=== PATIENT | female | born 1945 | race Caucasian/White ===

== ENCOUNTER 2020-02-17 10:23 | Outpatient (REF) | payer MEDICARE, SELFPAY ==
--- NOTE | 2020-02-17 | US_ITS ---
EXAMINATION: US DIAGNOSTIC ULTRASOUND BREAST, RIGHT CLINICAL INFORMATION: Medial density. COMPARISON: Mammography of same day and ultrasound of 02/22/2019 TECHNIQUE: Ultrasound of the breast is performed with real-time wing scale imaging and color Doppler. FINDINGS: Targeted ultrasound evaluation of the right breast demonstrated at the 3:00 position approximately 8 cm from the nipple, a 4 mm circumscribed hypoechoic lesion without distal sound enhancement and very faint distal sound shadowing. No internal vasculature is appreciated. Ultrasound-guided core biopsy is recommended. Results are discussed with the patient at time of visit. Density at the right is on 02/07/2020. IMPRESSION: Enlarging suspicious right breast lesion for which ultrasound-guided core biopsy is recommended. ASSESSMENT: BI-RADS 4: Suspicious. RECOMMENDATION: Ultrasound-guided core biopsy right breast lesion.
--- NOTE | 2020-02-17 | MM_ITS ---
EXAMINATION: MM DIAGNOSTIC DIGITAL BREAST TOMOSYNTHESIS, BILATERAL RIGHT BREAST ULTRASOUND CLINICAL INFORMATION: Bilateral mammography. Late for six-month followup of the right breast. The lifetime risk of breast cancer based on the Tyrer-Cuzick Model is 1.7%. COMPARISON: Mammography: 02/22/2019 and studies dating back to 12/11/2009. TECHNIQUE: Digital breast tomosynthesis is performed in both the craniocaudal and mediolateral oblique views along with computer-aided detection (CAD). Synthesized 2D images are generated from the tomosynthesis. Targeted right breast ultrasound. FINDINGS: There are scattered areas of fibroglandular density (ACR BI-RADS breast composition Category b). There is a stable parenchymal pattern of the left breast with no new abnormal dominant mass or suspicious grouping of microcalcifications. About the deep medial aspect of the right breast there is a circumscribed density approximately 9 cm from the nipple measuring 6 mm in diameter which has increased in size since the previous study where it measured 4 mm in diameter and was less dense. Targeted ultrasound evaluation of the right breast demonstrated at the 3 o'clock position approximately 8 cm from the nipple a 4 mm circumscribed hypoechoic lesion without distal sound enhancement and very faint distal sound shadowing. No internal vasculature is appreciated. Ultrasound-guided core biopsy is recommended. Results are discussed with the patient at time of visit. Larisa at the referring provider's office was notified of the above findings on 02/17/2020. IMPRESSION: Enlarging suspicious right breast lesion for which ultrasound-guided core biopsy is recommended. ASSESSMENT: BI-RADS 4: Suspicious RECOMMENDATION: Ultrasound-guided core biopsy right breast lesion. This patient's information was entered into a reminder system with a target due date for their next mammogram.
== END 2020-02-17 10:24 | disposition home or self-care (01) ==
LOC: HO.MAMMO 10:23
PROVIDERS: PCP Internal Medicine; Visit Provider Internal Medicine
DX: R92.2 Inconclusive mammogram (principal)
CPT/HCPCS: 76642; 77062; 77066

== ENCOUNTER 2020-02-28 09:54 | Outpatient (REF) | payer MEDICARE, SELFPAY ==
--- NOTE | 2020-02-28 | MM_ITS ---
EXAMINATION: ULTRASOUND GUIDED CORE BIOPSY BREAST, RIGHT POST PROCEDURE DIGITAL MAMMOGRAM, RIGHT CLINICAL INFORMATION: Hypoechoic nodule posterior medial right breast for tissue sampling. COMPARISON: Mammography 02/17/2020, 02/11/2019; targeted right breast ultrasound 02/17/2020, 02/22/2019. FINDINGS: Proper informed consent is obtained from the patient after discussion of the procedure, potential risks and complications, and alternatives. Patient was given an opportunity for questions. The patient appeared to understand. The patient consented to the procedure and signed the consent form. GUIDANCE: Ultrasound-guided; aseptic technique. LESION: Hypoechoic nodule 5 mm posterior medial 3:00 right breast and 8 cm from nipple. APPROACH: Oblique lateral medial. ANESTHESIA: 10 mL 1% lidocaine. DERMATOTOMY: Single skin keshia dermatotomy performed. NEEDLE: 16-gauge Bard Marquee biopsy device with co-axial introducer. CORES: 5. CLIP: HydroMARK; shape: butterfly. POST PROCEDURE UNILATERAL DIGITAL MAMMOGRAM: The post biopsy mammogram is performed in separate room using separate digital mammography equipment from the biopsy procedure. CC, LM x2, ML, and MLO views are obtained. There are scattered areas of fibroglandular density (breast composition category: b). The clip marker is in position, residing adjacent to the nodule demonstrated on recent mammography. No gross hematoma. The patient tolerated the procedure well. No immediate complications. Home instructions reviewed with the patient. Final pathology results are pending. MM/MM diagnostic mammo unilat RT IMPRESSION: 1. Status post ultrasound-guided core biopsy right breast. 2. Clip placed: HydroMARK; shape: butterfly. 3. Pathology pending. An addendum report will be issued.
--- NOTE | 2020-02-28 10:05 | US_ITS ---
EXAMINATION: ULTRASOUND GUIDED CORE BIOPSY BREAST, RIGHT POST PROCEDURE DIGITAL MAMMOGRAM, RIGHT CLINICAL INFORMATION: Hypoechoic nodule posterior medial right breast for tissue sampling. COMPARISON: Mammography 02/17/2020, 02/11/2019; targeted right breast ultrasound 02/17/2020, 02/22/2019. FINDINGS: Proper informed consent is obtained from the patient after discussion of the procedure, potential risks and complications, and alternatives. Patient was given an opportunity for questions. The patient appeared to understand. The patient consented to the procedure and signed the consent form. GUIDANCE: Ultrasound-guided; aseptic technique. LESION: Hypoechoic nodule 5 mm posterior medial 3:00 right breast and 8 cm from nipple. APPROACH: Oblique lateral medial. ANESTHESIA: 10 mL 1% lidocaine. DERMATOTOMY: Single skin ekshia dermatotomy performed. NEEDLE: 16-gauge Bard Marquee biopsy device with co-axial introducer. CORES: 5. CLIP: HydroMARK; shape: butterfly. POST PROCEDURE UNILATERAL DIGITAL MAMMOGRAM: The post biopsy mammogram is performed in separate room using separate digital mammography equipment from the biopsy procedure. CC, LM x2, ML, and MLO views are obtained. There are scattered areas of fibroglandular density (breast composition category: b). The clip marker is in position, residing adjacent to the nodule demonstrated on recent mammography. No gross hematoma. The patient tolerated the procedure well. No immediate complications. Home instructions reviewed with the patient. Final pathology results are pending. US/US breast ndl core biopsy RT IMPRESSION: 1. Status post ultrasound-guided core biopsy right breast. 2. Clip placed: HydroMARK; shape: butterfly. 3. Pathology pending. An addendum report will be issued.
== END 2020-02-28 09:55 | disposition home or self-care (01) ==
LOC: HO.MAMMO 09:54
PROVIDERS: Visit Provider Surgery
DX: R92.8 Other abnormal and inconclusive findings on diagnostic imaging of breast (principal); N63.10 Unspecified lump in the right breast, unspecified quadrant; I48.91 Unspecified atrial fibrillation; Z87.891 Personal history of nicotine dependence; Z90.710 Acquired absence of both cervix and uterus; Z88.5 Allergy status to narcotic agent; Z79.02 Long term (current) use of antithrombotics/antiplatelets; Z79.899 Other long term (current) drug therapy
CPT/HCPCS: 19083; 77065; 88305; 88341; 88342; 88360; 88377; 99203; A4648

== ENCOUNTER → 2020-03-06 10:34 | Outpatient (BNVA) | payer MEDICARE, SELFPAY | PROVIDERS: PCP Internal Medicine; Visit Provider Surgery | DX: C50.811 Malignant neoplasm of overlapping sites of right female breast (principal); Z17.0 Estrogen receptor positive status [ER+]; Z98.890 Other specified postprocedural states | CPT/HCPCS: 99212 ==

== ENCOUNTER 2020-03-14 06:48 | Day surgery (SDC) | payer MEDICARE, SELFPAY ==
--- NOTE | 2020-03-12 14:43 | P.CONAN_ITS ---
Documented by User: Nadia Sánchez 03/12/20 14:44 HPI - Anesthesia Eval Consult details Narrative: 74yo F for Breast Biopsy Needle Localization, Sentinal Node Biopsy [facility] Past Medical History Medical History (Updated 03/12/20 @ 14:44 by Nadia Sánchez) Atrial fibrillation Family History Family History (Updated 02/28/20 @ 08:47 by Qi Campos MD) Paternal Aunt Breast cancer, Onset Age: 65 Surgical History Surgical History History of arthroscopy History of cholecystectomy History of hysterectomy Social History Social History (Updated 02/28/20 @ 08:33 by TJ Yeung) Are you a primary healthcare corporate account director to a significant other at home: No Do you presently have visiting nurse or other home services: No Alcohol intake: current Alcohol intake frequency: holidays/special occasions only Smoking Status: Former smoker Smoked in Last 30 Days: No Use of substances other than those prescribed or required for medical reasons: No Advance Directives: No Advance Directives Information Provided: No Advance Directives on File: No Recently lost weight without trying: No Meds Allergies Allergy/AdvReac Type Severity Reaction Status Date / Time codeine [Codeine] AdvReac Mild NAUSEA & Verified 03/06/20 10:40 VOMITING Home Medications Medication Instructions Recorded Confirmed Type metoprolol succinate 50 mg 50 mg PO DAILY 02/28/20 03/06/20 History tablet,extended release 24 hr rivaroxaban 20 mg tablet 20 mg PO BEDTIME 02/28/20 03/06/20 History Exam Exam Date and Time: March 12, 2020 1443 Documented by User: Steve Farley 03/14/20 13:13 HPI - Anesthesia Eval Consult details Narrative: No hx of anesth problems, no fhx. [facility] Past Medical History Medical History (Updated 03/12/20 @ 14:44 by Nadia Sánchez) Atrial fibrillation Family History Family History (Updated 02/28/20 @ 08:47 by Qi Campos MD) Paternal Aunt Breast cancer, Onset Age: 65 Surgical History Surgical History History of arthroscopy History of cholecystectomy History of hysterectomy Social History Social History (Updated 02/28/20 @ 08:33 by TJ Yeung) Are you a primary healthcare corporate account director to a significant other at home: No Do you presently have visiting nurse or other home services: No Alcohol intake: current Alcohol intake frequency: holidays/special occasions only Smoking Status: Former smoker Smoked in Last 30 Days: No Use of substances other than those prescribed or required for medical reasons: No Advance Directives: No Advance Directives Information Provided: No Advance Directives on File: No Recently lost weight without trying: No Meds Allergies Allergy/AdvReac Type Severity Reaction Status Date / Time codeine [Codeine] AdvReac Mild NAUSEA & Verified 03/06/20 10:40 VOMITING Home Medications Medication Instructions Recorded Confirmed Type metoprolol succinate 50 mg 50 mg PO DAILY 02/28/20 03/06/20 History tablet,extended release 24 hr rivaroxaban 20 mg tablet 20 mg PO BEDTIME 02/28/20 03/06/20 History Exam Airway Mallampati Class: II TM Dist: >3cm Neck ROM: Full Other: caps Assessment and Plan Assessment Anesthesia Assessment: Anesthesia Plan Discussed and Chart Reviewed Final Anesthetic Review NPO: Yes ASA Class: II Final Preanesthetic Review: No Changes in Pt Med Stat, Meds/Allgs Chart Reviewed, Consent Obtained/Reviewed and Anes Risks/Benef Reviewed Patient Risk: Intermediate Procedure Risk: Low Anesthetic Plan Anesthetic Plan: GA and Agree w/ Assess. and Plan Disposition: Standard PACU
[2020-03-13 13:49] VITALS: BMI 27.1
--- NOTE | 2020-03-14 | US_ITS ---
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 COMPARISON: Mammography 02/17/2020, ultrasound-guided biopsy and postbiopsy mammography 02/28/2020. TECHNIQUE NEEDLE LOC: Proper informed consent is obtained from the patient after discussion of the procedure, potential risks and complications, and alternatives including declining the procedure today. Patient was given an opportunity for questions. The patient appeared to understand. The patient consented to the procedure and signed the consent form. GUIDANCE: Real time ultrasound guidance APPROACH: Oblique caudal cranial TARGET: Subcentimeter hypoechoic nodule posterior medial right breast with adjacent HydroMark clip marker. One site, 2 localization needles. ANESTHESIA: 15 cc lidocaine 1% LOCALIZATION MARKER: [place] MammaLok 7.5 cm, 2 localization needles. The skin is prepped and local anesthesia administered. The first localization needle is positioned at the nodule. Position assessed with real time ultrasound. The wire is hooked into position. The second localization needle is positioned at the HydroMark clip. Position is confirmed with real time ultrasound. POSTPROCEDURE UNILATERAL DIGITAL MAMMOGRAM: Mammography is performed using digital mammography in CC view with non-diagnostic compression in order to not disturb the localization needles. There are scattered areas of fibroglandular density (ACR BI-RADS breast composition Category b). One localization marker overlies the biopsy clip. The nodule is seen with certainty. [place] needle protector placed. The patient tolerated the procedure well and had no immediate complication. Films are reviewed remotely with Dr. Campos. Following the procedure, 1% lidocaine ointment was administered to the right areola and covered with Tegaderm in anticipation of nuclear lymphoscintigraphy injection for sentinel lymph node mapping to be described in a separate report. TECHNIQUE SPECIMEN RADIOGRAPH: Specimen radiograph of the excised breast tissue is performed in 2 perpendicular views. FINDINGS SPECIMEN RADIOGRAPH: The specimen shows the needles and hook wires are delivered intact. The biopsy clip marker is not identified in the specimen. There are background fibroglandular densities without focal nodule appreciated. Results were called to Dr. Qi Campos in the operating room at the time of imaging. US/US breast ndl core bio ea add IMPRESSION: 1. Status post ultrasound-guided right breast needle localization with 2 localization needles/wires hooked into position. 2. Postoperative specimen radiograph obtained.
--- NOTE | 2020-03-14 | NM_ITS ---
EXAMINATION: NM LYMPH SCINTIGRAPHY CLINICAL INFORMATION: Right breast cancer COMPARISON: None TECHNIQUE: The skin nipple interface of the right breast at the 12, 3, 6 and 9:00 axes was injected with 4 aliquots of 0.125 mCi technetium 99 M labeled Lymphoseek for a total dose of 0.5 mCi. Immediate and 1 hour imaging of the chest in the anterior, ESTRELLA and right lateral projections were obtained. FINDINGS: There is adequate radiotracer uptake seen at the skin nipple interface. No sentinel node activity is identified. NM/NM sentinel node w imaging IMPRESSION: No sentinel node activity identified.
--- NOTE | 2020-03-14 | US_ITS ---
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 COMPARISON: Mammography 02/17/2020, ultrasound-guided biopsy and postbiopsy mammography 02/28/2020. TECHNIQUE NEEDLE LOC: Proper informed consent is obtained from the patient after discussion of the procedure, potential risks and complications, and alternatives including declining the procedure today. Patient was given an opportunity for questions. The patient appeared to understand. The patient consented to the procedure and signed the consent form. GUIDANCE: Real time ultrasound guidance APPROACH: Oblique caudal cranial TARGET: Subcentimeter hypoechoic nodule posterior medial right breast with adjacent HydroMark clip marker. One site, 2 localization needles. ANESTHESIA: 15 cc lidocaine 1% LOCALIZATION MARKER: [place] MammaLok 7.5 cm, 2 localization needles. The skin is prepped and local anesthesia administered. The first localization needle is positioned at the nodule. Position assessed with real time ultrasound. The wire is hooked into position. The second localization needle is positioned at the HydroMark clip. Position is confirmed with real time ultrasound. POSTPROCEDURE UNILATERAL DIGITAL MAMMOGRAM: Mammography is performed using digital mammography in CC view with non-diagnostic compression in order to not disturb the localization needles. There are scattered areas of fibroglandular density (ACR BI-RADS breast composition Category b). One localization marker overlies the biopsy clip. The nodule is seen with certainty. [place] needle protector placed. The patient tolerated the procedure well and had no immediate complication. Films are reviewed remotely with Dr. Campos. Following the procedure, 1% lidocaine ointment was administered to the right areola and covered with Tegaderm in anticipation of nuclear lymphoscintigraphy injection for sentinel lymph node mapping to be described in a separate report. TECHNIQUE SPECIMEN RADIOGRAPH: Specimen radiograph of the excised breast tissue is performed in 2 perpendicular views. FINDINGS SPECIMEN RADIOGRAPH: The specimen shows the needles and hook wires are delivered intact. The biopsy clip marker is not identified in the specimen. There are background fibroglandular densities without focal nodule appreciated. Results were called to Dr. Qi Campos in the operating room at the time of imaging. US/US breast needle loc RT IMPRESSION: 1. Status post ultrasound-guided right breast needle localization with 2 localization needles/wires hooked into position. 2. Postoperative specimen radiograph obtained.
[2020-03-14 07:29] VITALS: BP 180/86; PULSE 58; RESP 20; TEMP 36.2; O2SAT 98
[2020-03-14] MEDS: Lidocaine 4 % Cream KIT 1 APPL TOPICAL (07:39)
[2020-03-14] MEDS: Lactated Ringers 1,000 ML 100 ML IVCONT (07:39)
[2020-03-14] MEDS: ceFAZolin Sodium/Dextrose,Iso 2 GM/50 ML PIGGYBACK IV (07:39)
--- NOTE | 2020-03-14 08:03 | MM_ITS ---
This exam is included in a single combined report along with the ultrasound-guided needle localization right breast, accession # [id number].
--- NOTE | 2020-03-14 13:55 | W.PM.OPN ---
Operative Note Operative Note Narrative: Preoperative diagnosis: Right breast carcinoma Postoperative diagnosis: Same Procedure: Right breast lumpectomy with needle localization and right axillary sentinel lymph node biopsy, Isosulfan blue injection for sentinel lymph node biopsy Showroom Salesperson: Derik Anesthesia: General laryngeal mask Estimated blood loss: 15 cc Specimens: Right breast lumpectomy, right axillary sentinel lymph node 1., re-excision inferior margin of lumpectomy, re-excision of lateral margin of lumpectomy Immediate complications: None Other findings: Preoperative scanning did not demonstrate any radioactive lymph nodes within the right axilla and scanning with the probe at the beginning of the surgical procedure also did not reveal any evidence of radioactive lymph nodes in the right axillary area. Lymphazurin was injected at the beginning of the procedure and breast massage was performed for 3 minutes. At the time of sentinel lymph node biopsy, the axilla was rescanned with the probe and radio activity was identified within the axilla. Indications: This is a 74-year-old female who recently was noted to have a slight increase in size of a density in the medial aspect of the right breast. Biopsy was performed and revealed infiltrating ductal carcinoma, estrogen and progesterone receptor positive and HER2 Imani negative for over expression, cT1a cN0 M0, stage I. Procedure in detail: With the patient in the supine position after placement of localizing needles and wires and after injection and scanning for sentinel lymph node biopsy, adequate general anesthesia was induced. Time-out procedure was performed. 2 g of cefazolin were infused for antibiotic prophylaxis. The right breast, localizing needles, surrounding chest wall, axilla, shoulder and upper arm were prepped with ChloraPrep and were draped sterilely. Initially, the axillary area was scanned with the probe. No areas of significantly elevated count were identified. Injection of Isosulfan blue was therefore carried out. 3 cc were injected, 1 cc each into the subdermal that tissues at the 12:00 o'clock, 09:00 o'clock and 6 o'clock position just beyond the areolar border. Gentle massage of the right breast was performed for 3 minutes. Right breast lumpectomy was then undertaken. Incision line was marked in a transverse fashion beginning just lateral to the sternal border and extending laterally for a distance of approximately 3 cm. Skin and subcutaneous tissues were infiltrated with local anesthetic. A transverse incision was then made extending through needle insertion sites was carried into the subcutaneous tissues. Skin flaps were raised circumferentially and tissues were then dissected free surrounding the 2 needles and wires to would just beyond the hook of the wire laterally. Medially yet, the hook of the wire was exposed during dissection and the gel plug associated with the marking clip was exposed. An additional margin of tissue was taken in this area and the gel plug was replaced and the tissue and closed over this area. The specimen was marked for margins and remaining posterior attachments were divided. The specimen was sent for re-x-ray. While awaiting specimen x-ray results, the lumpectomy cavity was irrigated with saline solution and was inspected for bleeding. Minimal bleeding was noted and was controlled using the cautery. A moist sponge was placed into the lumpectomy cavity and a Tegaderm dressing was placed over it. Gloves and instruments were then changed. Haigler lymph node biopsy was undertaken. The base of the axilla was scanned with the probe and areas of elevated count were identified. Skin and subcutaneous tissues at the base of the axilla were infiltrated with local anesthetic and a transverse incision was made and was carried into the subcutaneous tissues and down to the level of the yet axillary fat pad. A blue lymphatic was identified and was followed to a blue-stained lymph node. Scanning of the blue lymph node identified a count of 1024 once the lymph node was dissected free. Minimal bleeding was encountered and was controlled using the electrocautery. Rescanning of the axilla was carried out. There were no additional areas of significantly elevated count identified. The axilla was also inspected. Did the blue lymphatic leading to the initially resected node was again identified. No additional and blue lymphatics or blue lymph nodes were identified and palpation of the axilla did not demonstrate any palpable lymph nodes. The wound was irrigated with saline solution and was inspected for bleeding. None was seen. Deep and superficial subcutaneous tissues were closed with interrupted sutures of 3-0 Polysorb. Skin was closed with a running subcuticular suture of 4-0 Polysorb and a sterile towel was placed over the incision. All caring out the sentinel lymph node biopsy, the specimen x-ray report was received from Dr. Maurer. The marking clip was not identified within the specimen and was felt likely to have been dislodged when the hydro colloid plug was encountered. Report was subsequently received from Dr. albright in pathology. The tumor site was identified. Inferior and lateral margins were felt to be close and re-excision was recommended. The Tegaderm and sponge were removed from the lumpectomy site and re-excision of the inferior and lateral margins was carried out. Specimens were marked for orientation and were sent for permanent analysis. The lumpectomy site was irrigated with saline solution and was inspected for bleeding. None was seen. Skin flaps were extended circumferentially to allow for reapproximation of subcutaneous tissues. Subcutaneous tissues were then reapproximated with interrupted sutures of 3-0 Polysorb. Skin was closed with a running subcuticular suture of 4-0 Polysorb. Steri-Strips and dry sterile dressings were applied to the lumpectomy site and the sentinel lymph node biopsy site. Sponge and instrument counts were correct. She tolerated the procedure well and was transported to the recovery room in stable condition. There were no immediate complications. Breast Haigler Node Biopsy Substrate(s) used for sentinel node biopsy in the non-neoadjuvant setting: Dye and Radiotracer All colored nodes or non-colored nodes present at the end of a dye filled lymphatic channel were removed, if dye was used as the substrate for localization: Yes All significantly radioactive nodes were removed, if radionuclide was used as the substrate for localization: Yes All palpably suspicious nodes were removed, if present: N/A General Surg. - Synoptic Notes Breast Ha[place]ler Node Biopsy Substrate(s) used for sentinel node biopsy in the non-neoadjuvant setting: Dye and Radiotracer All colored nodes or non-colored nodes present at the end of a dye filled lymphatic channel were removed, if dye was used as the substrate for localization: Yes All significantly radioactive nodes were removed, if radionuclide was used as the substrate for localization: Yes All palpably suspicious nodes were removed, if present: N/A
[2020-03-14 13:56] VITALS: BP 107/44; PULSE 65; RESP 14; TEMP 36.5; O2SAT 92
[2020-03-14 14:01] VITALS: BP 150/62; PULSE 63; O2SAT 93
[2020-03-14 14:06] VITALS: BP 156/60; PULSE 63; RESP 12; O2SAT 94
[2020-03-14 14:11] VITALS: BP 157/70; PULSE 61; RESP 17; O2SAT 93
[2020-03-14 14:26] VITALS: BP 151/62; PULSE 58; RESP 15; TEMP 36.4; O2SAT 94
--- NOTE | 2020-03-14 15:00 | HO.POSTANES ---
Post Anesthesia Evaluation Post Anesthesia Evaluation Vital Signs: Vital Signs Temp Pulse Resp BP Pulse Ox 03/14/20 14:26 97.5 F 58 15 151/62 H 94 03/14/20 14:11 61 17 157/70 H 93 03/14/20 14:06 63 12 156/60 H 94 03/14/20 14:01 63 150/62 H 93 03/14/20 13:56 97.7 F 65 14 107/44 L 92 03/14/20 07:29 97.1 F 58 20 180/86 H 98 Anesthesia: General LMA Mental Status: Awake Pain Control: Satisfactory Nausea/Vomiting: None Hydration: Adequate Anesthesia-Related Issues: No Anes. Related Issues
== END 2020-03-14 15:04 | disposition home or self-care (01) ==
PROVIDERS: PCP Internal Medicine; Visit Provider Surgery
DX: C50.911 Malignant neoplasm of unspecified site of right female breast (principal); Z17.0 Estrogen receptor positive status [ER+]; I48.91 Unspecified atrial fibrillation; Z79.01 Long term (current) use of anticoagulants; Z79.899 Other long term (current) drug therapy; Z88.8 Allergy status to other drugs, medicaments and biological substances
CPT/HCPCS: 19301; 38525; 38900; 19285; 19286; 77065; 78195; 88307; 88329; 88341; 88342; A4648; A9520; J0690; J2250; J3010

== ENCOUNTER → 2020-03-22 09:28 | Outpatient (BNVA) | payer MEDICARE, SELFPAY | PROVIDERS: PCP Internal Medicine; Visit Provider Surgery | DX: Z48.3 Aftercare following surgery for neoplasm (principal); C50.911 Malignant neoplasm of unspecified site of right female breast | CPT/HCPCS: 99212 ==

== ENCOUNTER 2020-03-26 06:59 | Day surgery (SDC) | payer MEDICARE, SELFPAY ==
--- NOTE | 2020-03-23 10:02 | HO.ANESPROP2 ---
Documented by User: Nadia Sánchez 03/23/20 10:09 HPI - Anesthesia Eval Consult details Narrative: 74yo Breast Lumpectomy, re-excision 03/14/20: breast bx, needle loc with GA-LMA 3 PMFSH Past Medical History Medical History Atrial fibrillation Family History Family History Paternal Aunt Breast cancer, Onset Age: 65 Surgical History Surgical History History of arthroscopy History of cholecystectomy History of hysterectomy History of lumpectomy of right breast Social History Social History Alcohol intake: current Alcohol intake frequency: holidays/special occasions only Smoking Status: Former smoker Second Hand Smoke Exposure: No Use of substances other than those prescribed or required for medical reasons: No Advance Directives: No Advance Directives Information Provided: No Advance Directives on File: No Meds Allergies Allergy/AdvReac Type Severity Reaction Status Date / Time codeine [Codeine] AdvReac Mild NAUSEA & Verified 03/06/20 10:40 VOMITING Home Medications Medication Instructions Recorded Confirmed Type metoprolol succinate 50 mg 50 mg PO DAILY 02/28/20 03/06/20 History tablet,extended release 24 hr rivaroxaban 20 mg tablet 20 mg PO BEDTIME 02/28/20 03/06/20 History Exam Exam Date and Time: March 23, 2020 1002 Assessment and Plan Assessment Anesthesia Assessment: Chart Reviewed Documented by User: Piedad Alvarez 03/26/20 08:12 PMFSH Past Medical History Medical History Atrial fibrillation Family History Family History Paternal Aunt Breast cancer, Onset Age: 65 Surgical History Surgical History History of arthroscopy History of cholecystectomy History of hysterectomy History of lumpectomy of right breast Social History Social History Alcohol intake: current Alcohol intake frequency: holidays/special occasions only Smoking Status: Former smoker Second Hand Smoke Exposure: No Use of substances other than those prescribed or required for medical reasons: No Advance Directives: No Advance Directives Information Provided: No Advance Directives on File: No Meds Allergies Allergy/AdvReac Type Severity Reaction Status Date / Time codeine [Codeine] AdvReac Mild NAUSEA & Verified 03/06/20 10:40 VOMITING Home Medications Medication Instructions Recorded Confirmed Type metoprolol succinate 50 mg 50 mg PO DAILY 02/28/20 03/06/20 History tablet,extended release 24 hr rivaroxaban 20 mg tablet 20 mg PO BEDTIME 02/28/20 03/06/20 History Exam Airway Mallampati Class: III (Small mouth) TM Dist: >3cm Neck ROM: Full Loose/Missing/Broken Teeth: No Heart: irreg irreg rhythm Lungs: CTA
[2020-03-23 11:11] VITALS: BMI 26.2
[2020-03-26] VITALS (8 sets, daily range): BP systolic 125–179; BP diastolic 53–81; PULSE 52–60; RESP 12–18; TEMP 36.1–36.3; O2SAT 96–100
[2020-03-26] MEDS: Lactated Ringers 1,000 ML 100 ML IVCONT (07:55)
[2020-03-26] MEDS: ceFAZolin Sodium/Dextrose,Iso 2 GM/50 ML PIGGYBACK IV (07:55)
--- NOTE | 2020-03-26 09:35 | PM.ANESPN ---
Physical Exam Vital Signs: Vital Signs: Last Vital Signs Temp 97.3 F 03/26/20 07:42 Pulse 60 03/26/20 07:42 Resp 18 03/26/20 07:42 BP 152/57 H 03/26/20 07:42 Pulse Ox 98 03/26/20 07:42 Body Mass Index 26.2 heart exam: RRR Progress Note: A&P Fall Risk Details Current Medications: Current Medications Generic Name Dose Route Start Last Admin Trade Name Ronq PRN Reason Stop Dose Admin Albuterol Sulfate 2.5 mg 03/26/20 08:14 Albuterol Sulfate (0.083%) 2.5 Mg/3 Ml Vial.Neb INHALE ONCE PRN Wheezing Fentanyl 25 mcg 03/26/20 08:12 Fentanyl Citrate/Pf 100 Mcg/2 Ml Vial IVPUSH Q5M PRN Pain, Moderate (Pain Scale 4-6 Fentanyl 50 mcg 03/26/20 08:12 Fentanyl Citrate/Pf 100 Mcg/2 Ml Vial IVPUSH Q5M PRN Pain, Severe (Pain Scale 7-10) Lactated Ringer's 1,000 mls @ 100 mls/hr 03/26/20 07:15 03/26/20 07:55 Lr IVCONT 100 mls/hr .Q10H PRERNA Administration Promethazine HCl 6.25 mg/ 50.25 mls @ 201 mls/hr 03/26/20 08:14 Sodium Chloride IV ONCE PRN Nausea and Vomiting Oxycodone HCl 10 mg 03/26/20 08:12 Oxycodone Hcl Immed Release 5 Mg Tablet PO ONCE PRN Pain, Severe (Pain Scale 7-10) Oxycodone HCl 5 mg 03/26/20 08:12 Oxycodone Hcl Immed Release 5 Mg Tablet PO ONCE PRN Pain, Moderate (Pain Scale 4-6 Time Spent With Patient Time: Total time spent is greater than 50% in coordination of care (as documented) at patient's floor/unit and/or counseling patient:
[2020-03-26] MEDS: oxyCODONE HCl Immed Release 5 MG TABLET PO (10:48)
--- NOTE | 2020-03-26 10:49 | P.OP_ITS ---
Operative Note Operative Note Date of Service: 03/26/20 Narrative: Preoperative diagnosis: Right breast carcinoma with involved lumpectomy margins Postoperative diagnosis: Same Procedure: Re-excision of right breast lumpectomy margins with radial ellipse mastopexy closure Audit Senior Associate: None Anesthesia: General laryngeal mask Specimen: re-excision right breast lumpectomy margins Estimated blood: loss less than 10 cc Immediate complications: none Indications: This is a 74-year-old female who underwent right breast lumpectomy and right axillary sentinel node biopsy 2 weeks ago for a stage I carcinoma of the right breast. Margins were diffusely involved with DCIS and re-excision is planned. Procedure detail: With her in the supine position after induction of general anesthesia, the right breast and surrounding chest wall were prepped with ChloraPrep and were draped sterilely. Time-out procedure was performed. 2 g of cefazolin were infused for antibiotic prophylaxis. An elliptical that of incision was marked in the medial right breast including the prior lumpectomy incision. Skin and subcutaneous tissues were infiltrated with local anesthetic and an elliptical incision was made and was carried into the subcutaneous tissues. Bleeding was controlled throughout the procedure using the electrosurgical pencil. Skin flaps were raised circumferentially and the prior lumpectomy site was excised circumferentially. Along the superior aspect, the lumpectomy cavity was entered and a seroma was evacuated. Excision was carried down to the pectoralis fascia and the specimen was excised at that level. The specimen was marked for margins and the opening that had been created in the lumpectomy cavity was closed along the specimen with 3-0 Polysorb. The specimen was sent for immediate evaluation. The breast was then mobilized along the level of the anterior pectoralis major circumferentially for about 5 cm cephalad a 3-4 cm caudad. The wound was irrigated with saline solution and was inspected for bleeding. Minimal bleeding was noted and was controlled using the electrosurgical pencil. Deep tissues were then reapproximated with interrupted sutures of 2 0 Polysorb. Breast tissue was reapproximated with interrupted sutures of 2 0 Polysorb. Superficial subcutaneous tissues were closed with interrupted sutures of 3-0 Polysorb and skin was closed with a running subcuticular suture of 4-0 Polysorb. Sponge and sharp counts were correct. Dry sterile dressings were applied. She tolerated the procedure well and was transported to the recovery room in stable condition there were no immediate complications.
--- NOTE | 2020-03-26 12:16 | HO.POSTANES ---
Post Anesthesia Evaluation Post Anesthesia Evaluation Vital Signs: Vital Signs Temp Pulse Resp BP Pulse Ox 03/26/20 11:46 97.0 F 53 16 157/53 H 97 03/26/20 11:31 55 16 165/66 H 96 03/26/20 11:16 53 16 179/81 H 97 03/26/20 11:01 53 16 155/73 H 98 03/26/20 10:56 52 16 132/78 98 03/26/20 10:51 53 16 135/69 98 03/26/20 10:46 97.0 F 56 12 125/61 100 03/26/20 07:42 97.3 F 60 18 152/57 H 98 Anesthesia: General LMA Mental Status: Awake Pain Control: Satisfactory Nausea/Vomiting: None Hydration: Adequate Anesthesia-Related Issues: No Anes. Related Issues
== END 2020-03-26 12:18 | disposition home or self-care (01) ==
PROVIDERS: PCP Internal Medicine; Visit Provider Surgery
PROC: (CPT 19301; principal; 2020-03-26 08:40)
DX: C50.811 Malignant neoplasm of overlapping sites of right female breast (principal); M96.843 Postprocedural seroma of a musculoskeletal structure following other procedure; Y83.8 Other surgical procedures as the cause of abnormal reaction of the patient, or of later complication, without mention of misadventure at the time of the procedure; Y92.9 Unspecified place or not applicable; I48.91 Unspecified atrial fibrillation; Z79.01 Long term (current) use of anticoagulants; Z88.8 Allergy status to other drugs, medicaments and biological substances
CPT/HCPCS: 19301; 10140; 88307; 88342; J0690; J1100; J2250; J2405; J3010

== ENCOUNTER → 2020-04-03 09:25 | Outpatient (BNVA) | payer MEDICARE, SELFPAY | PROVIDERS: PCP Internal Medicine; Visit Provider Surgery | DX: C50.911 Malignant neoplasm of unspecified site of right female breast (principal) | CPT/HCPCS: 99212 ==

== ENCOUNTER → 2020-05-08 15:54 | Outpatient (BNVA) | payer MEDICARE, SELFPAY | PROVIDERS: PCP Internal Medicine; Visit Provider Surgery | DX: C50.911 Malignant neoplasm of unspecified site of right female breast (principal) | CPT/HCPCS: 99212 ==

== ENCOUNTER 2020-05-09 12:51 | Outpatient (REF) | payer MEDICARE, SELFPAY ==
--- NOTE | 2020-05-09 12:54 | MM_ITS ---
EXAMINATION: BONE DENSITOMETRY CLINICAL INDICATION: Osteopenia. COMPARISON: Previous BD dated 02/11/2019 and baseline BD dated 02/20/2011. TECHNIQUE: Using a [employer] DXA System (software version: 13.1) manufactured by [employer], dual-energy x-ray absorptiometry was performed of the lumbar spine and left hip. The images are of good technical quality. Summary results are attached. FINDINGS: AP SPINE L1-L4: Current: BMD 1.110 g/cm2, Z-score 1.2, T-score -0.6, normal, 3.8% decrease from previous, 3.7% increase from baseline (<5% change is not significant). Prior: BMD 1.154 g/cm2. Baseline: BMD 1.070 g/cm2. LEFT FEMUR, NECK: Current: BMD 0.873 g/cm2, Z-score 0.8, T-score -1.2, osteopenia. Prior: BMD 0.881 g/cm2. Baseline: BMD 0.887 g/cm2. LEFT FEMUR, TOTAL: Current: BMD 0.925 g/cm2, Z-score 1.2, T-score -0.7, normal, 0.4% increase from previous, 1.8% decrease from baseline (<5% change is not significant). Prior: BMD 0.921 g/cm2. Baseline: BMD 0.942 g/cm2. IDENTIFIED RISK FACTORS: Early menopause, secondary osteoporosis, history of fracture (adult), hysterectomy. HISTORY OF FRACTURE: Humerus/shoulder. No insufficiency fracture reported. MEDICATIONS: None listed. MM/XR DEXA axial skeleton IMPRESSION: 1. DIAGNOSIS: Osteopenia based on the lowest T-score value of -1.2 in the femoral neck applying World Health Organization criteria. 2. 10-YEAR FRACTURE RISK PREDICTION, FRAX: Major osteoporotic fracture (clinical spine, forearm, hip or shoulder) 16.6%. Hip fracture 2.8%. 3. Treatment Recommendations: NOF guidelines recommend consideration for treatment in postmenopausal women and men age 50 and older presenting with the following: -A hip or vertebral (clinical or morphometric) fracture. -T-score less than or equal to -2.5 at the femoral neck or spine after appropriate evaluation to exclude secondary causes. -Low bone mass at the hip or spine and a 10-year fracture probability by FRAX of greater than or equal to 3% for hip fracture or greater than or equal to 20% for major osteoporotic fracture based on the [place] adapted WHO algorithm. 4. Other Recommendations: All treatment decisions require clinical judgment and consideration of individual patient factors, including patient preferences, comorbidities, previous drug use, risk factors not captured in the FRAX model (e.g. frailty, falls, vitamin D deficiency, increased bone turnover, interval significant decline in bone density) and possible under or overestimation of fracture risk by FRAX. Additional medical evaluation for secondary cause of low bone mineral density may be appropriate. FUTURE SCAN RECOMMENDATION: People with diagnosed cases of osteoporosis or at high risk for fracture should have regular bone mineral density tests. For patients eligible for Medicare, routine testing is allowed once every 2 years. The testing frequency can be increased to one year for patients who have rapidly progressing disease, those who are receiving or discontinuing medical therapy to restore bone mass, or have additional risk factors.
== END 2020-05-09 12:52 | disposition home or self-care (01) ==
LOC: HO.MAMMO 12:51
PROVIDERS: Visit Provider Internal Medicine Medical Oncology
DX: Z13.820 Encounter for screening for osteoporosis (principal); M85.88 Other specified disorders of bone density and structure, other site; C50.919 Malignant neoplasm of unspecified site of unspecified female breast
CPT/HCPCS: 77080

== ENCOUNTER → 2020-09-13 11:15 | Outpatient (BNVA) | payer MEDICARE, SELFPAY | PROVIDERS: PCP Internal Medicine; Visit Provider Surgery | DX: C50.911 Malignant neoplasm of unspecified site of right female breast (principal) | CPT/HCPCS: 99212 ==

== ENCOUNTER → 2021-01-10 13:47 | Outpatient (BNVA) | payer MEDICARE, SELFPAY | PROVIDERS: PCP Internal Medicine; Referring Provider Internal Medicine; Visit Provider Surgery | DX: C50.311 Malignant neoplasm of lower-inner quadrant of right female breast (principal); I48.91 Unspecified atrial fibrillation; I10 Essential (primary) hypertension; Z88.6 Allergy status to analgesic agent; Z92.3 Personal history of irradiation | CPT/HCPCS: 99212 ==

== ENCOUNTER 2021-02-01 12:53 | Outpatient (REF) | payer MEDICARE, SELFPAY ==
--- NOTE | ~2021-02-01 | MM_ITS ---
EXAMINATION: MM DIAGNOSTIC DIGITAL BREAST TOMOSYNTHESIS, BILATERAL CLINICAL INFORMATION: Invasive ductal cancer and DCIS posterior medial right breast status post lumpectomy 03/14/2020. COMPARISON: Mammography: 03/14/2020, 02/28/2020, 02/17/2020, 02/11/2019, 10/26/2017 TECHNIQUE: Digital breast tomosynthesis is performed in both the craniocaudal and mediolateral oblique views along with computer-aided detection (CAD). Synthesized 2D images are generated from the tomosynthesis. Additional magnification right CC and magnification right LM views are obtained. FINDINGS: There are scattered areas of fibroglandular density (ACR BI-RADS breast composition Category b). There are post therapy changes on the right with mild reduced breast size and scarring. Neither breast shows interval mass or architectural abnormality or abnormal calcifications. The axilla are unremarkable. Results are provided to the patient at time of visit by the technologist. MM/MM tomosynthesis diagnostic BI IMPRESSION: No mammographic evidence of malignancy. Postsurgical changes right breast. ASSESSMENT: BI-RADS 2: Benign RECOMMENDATION: Bilateral annual mammography. This patient's information was entered into a reminder system with a target due date for their next mammogram.
== END 2021-02-01 12:54 | disposition home or self-care (01) ==
LOC: HO.MAMMO 12:53
PROVIDERS: PCP Internal Medicine; Visit Provider Surgery
DX: Z85.3 Personal history of malignant neoplasm of breast (principal)
CPT/HCPCS: 77062; 77066

== ENCOUNTER → 2021-08-22 13:16 | Outpatient (BNVA) | payer MEDICARE, SELFPAY | PROVIDERS: PCP Internal Medicine; Referring Provider Internal Medicine; Visit Provider Surgery | DX: C50.911 Malignant neoplasm of unspecified site of right female breast (principal); Z92.3 Personal history of irradiation | CPT/HCPCS: 99212 ==

== ENCOUNTER 2022-03-07 14:04 | Outpatient (REF) | payer MEDICARE, SELFPAY ==
--- NOTE | ~2022-03-07 | MM_ITS ---
EXAMINATION: MM DIAGNOSTIC DIGITAL BREAST TOMOSYNTHESIS, BILATERAL CLINICAL INFORMATION: Due for yearly. Right lumpectomy for IDC and DCIS 03/14/2020. COMPARISON: Mammography: 02/01/2021, 03/14/2020, 02/28/2020, 02/17/2020, 02/11/2019 TECHNIQUE: Digital breast tomosynthesis is performed in both the craniocaudal and mediolateral oblique views along with computer-aided detection (CAD). Synthesized 2D images are generated from the tomosynthesis. Additional magnification right CC and magnification right LM x2 views are provided. FINDINGS: There are scattered areas of fibroglandular density (ACR BI-RADS breast composition Category b). Left breast shows no significant changes from prior studies. There is no developing density or interval mass or architectural abnormality. Neither breast shows abnormal calcifications. The axilla are unremarkable. Again, there are post therapy changes on the right. No significant changes. Results are provided to the patient at time of visit by the technologist. MM/MM tomosynthesis diagnostic BI IMPRESSION: -No mammographic evidence of malignancy. -Post therapy changes right breast. ASSESSMENT: BI-RADS 2: Benign RECOMMENDATION: Annual bilateral mammography. This patient's information was entered into a reminder system with a target due date for their next mammogram.
== END 2022-03-07 14:05 | disposition home or self-care (01) ==
LOC: HO.MAMMO 14:04
PROVIDERS: PCP Internal Medicine; Visit Provider Internal Medicine
DX: Z85.3 Personal history of malignant neoplasm of breast (principal)
CPT/HCPCS: 77062; 77066

== ENCOUNTER → 2022-03-20 11:27 | Outpatient (BNVA) | payer MEDICARE, SELFPAY | PROVIDERS: PCP Internal Medicine; Referring Provider Internal Medicine; Visit Provider Surgery | DX: C50.911 Malignant neoplasm of unspecified site of right female breast (principal) | CPT/HCPCS: 99212 ==

== ENCOUNTER → 2022-10-31 10:38 | Outpatient (BNVA) | payer MEDICARE, SELFPAY | PROVIDERS: PCP Internal Medicine; Visit Provider Surgery | DX: C50.911 Malignant neoplasm of unspecified site of right female breast (principal); Z92.3 Personal history of irradiation | CPT/HCPCS: 99212 ==

== ENCOUNTER → 2023-03-12 13:00 | Outpatient (BNV) | payer MEDICARE, SELFPAY | PROVIDERS: PCP Internal Medicine; Visit Provider Radiology Diagnostic Radiology | DX: D05.11 Intraductal carcinoma in situ of right breast (principal) | CPT/HCPCS: 77062; 77066; G0279 ==

== ENCOUNTER 2023-03-12 13:16 | Outpatient (REF) | payer MEDICARE, SELFPAY ==
--- NOTE | ~2023-03-12 | MM_ITS ---
EXAMINATION: MM DIAGNOSTIC DIGITAL BREAST TOMOSYNTHESIS, BILATERAL CLINICAL INFORMATION: Year 3 follow-up right breast lumpectomy for IDC and DCIS diagnosed 03/14/2020. COMPARISON: Mammography: 03/07/2022, 02/01/2021, and dating back to 2019. TECHNIQUE: Digital breast tomosynthesis is performed in both the craniocaudal and mediolateral oblique views along with computer-aided detection (CAD). Synthesized 2D images are generated from the tomosynthesis. In addition, spot magnification right CC and LM views were obtained at the lumpectomy site right breast. FINDINGS: There are scattered areas of fibroglandular density (ACR BI-RADS breast composition Category b). Left breast shows no significant changes from prior studies. There is no developing density or interval mass or architectural abnormality. Neither breast shows abnormal calcifications. The axilla are unremarkable. Again, there are post therapy changes on the right. No significant changes. MM/MM tomosynthesis diagnostic BI IMPRESSION: There are no significant changes from prior study. No findings suspicious for malignancy. Stable benign findings right breast. Recommend the patient return to routine annual screening mammography. ASSESSMENT: BI-RADS BI-RADS 2 - Benign Findings RECOMMENDATION: 1 year F/U Results were provided to the patient at time of visit by the technologist. This patient's information was entered into a reminder system with a target due date for their next mammogram.
--- NOTE | ~2023-03-12 | MM_ITS ---
EXAMINATION: BONE DENSITOMETRY CLINICAL INDICATION: Osteopenia. COMPARISON: Previous BD dated 05/09/2020 and baseline BD dated 02/20/2011. TECHNIQUE: Using a [employer] DXA System (software version: 13.1) manufactured by [employer], dual-energy x-ray absorptiometry was performed of the lumbar spine and left hip. The images are of good technical quality. Summary results are attached. FINDINGS: LEFT FEMUR, NECK: Current: BMD 0.890 g/cm2, Z-score 0.9, T-score -1.1, osteopenia. Prior: BMD 0.873 g/cm2. Baseline: BMD 0.887 g/cm2. LEFT FEMUR, TOTAL: Current: BMD 0.928 g/cm2, Z-score 1.2, T-score -0.6, normal, 0.3% increase from previous, 1.5% decrease from baseline (<5% change is not significant). Prior: BMD 0.925 g/cm2. Baseline: BMD 0.942 g/cm2. AP SPINE L1-L4: Current: BMD 1.184 g/cm2, Z-score 1.6, T-score 0.0, normal, 6.7% increase from previous, 10.7% increase from baseline (<5% change is not significant). Prior: BMD 1.110 g/cm2. Baseline: BMD 1.070 g/cm2. IDENTIFIED RISK FACTORS: Early menopause, history of fracture (adult), hysterectomy, secondary osteoporosis. HISTORY OF FRACTURE: Shoulder. MEDICATIONS: None listed. MM/XR DEXA axial skeleton IMPRESSION: 1. DIAGNOSIS: Osteopenia based on the lowest T-score value of -1.1 in the femoral neck applying World Health Organization criteria. 2. 10-YEAR FRACTURE RISK PREDICTION, FRAX: Major osteoporotic fracture (clinical spine, forearm, hip or shoulder) 16.8%. Hip fracture 2.9%. 3. Treatment Recommendations: NOF guidelines recommend consideration for treatment in postmenopausal women and men age 50 and older presenting with the following: -A hip or vertebral (clinical or morphometric) fracture. -T-score less than or equal to -2.5 at the femoral neck or spine after appropriate evaluation to exclude secondary causes. -Low bone mass at the hip or spine and a 10-year fracture probability by FRAX of greater than or equal to 3% for hip fracture or greater than or equal to 20% for major osteoporotic fracture based on the [place] adapted WHO algorithm. 4. Other Recommendations: All treatment decisions require clinical judgment and consideration of individual patient factors, including patient preferences, comorbidities, previous drug use, risk factors not captured in the FRAX model (e.g. frailty, falls, vitamin D deficiency, increased bone turnover, interval significant decline in bone density) and possible under or overestimation of fracture risk by FRAX. Additional medical evaluation for secondary cause of low bone mineral density may be appropriate. FUTURE SCAN RECOMMENDATION: People with diagnosed cases of osteoporosis or at high risk for fracture should have regular bone mineral density tests. For patients eligible for Medicare, routine testing is allowed once every 2 years. The testing frequency can be increased to one year for patients who have rapidly progressing disease, those who are receiving or discontinuing medical therapy to restore bone mass, or have additional risk factors.
== END 2023-03-12 13:17 | disposition home or self-care (01) ==
LOC: HO.MAMMO 13:16
PROVIDERS: PCP Internal Medicine; Visit Provider Internal Medicine
DX: Z85.3 Personal history of malignant neoplasm of breast (principal); Z13.820 Encounter for screening for osteoporosis; M85.80 Other specified disorders of bone density and structure, unspecified site; Z78.0 Asymptomatic menopausal state
CPT/HCPCS: 77062; 77066; 77080

== ENCOUNTER 2023-09-15 10:58 | Outpatient (AMB) | payer MEDICARE, SELFPAY ==
--- NOTE | 2023-09-15 11:00 | A.OFFVIS_ITS ---
Vital Signs 09/15/23 11:09 Height 5 ft 2 in Weight 168 lb BMI 30.7 BP 130/82 Blood Pressure Location Lt brachial Position Sitting Intake Visit Reasons: 6 month follow up breast exam Intake Note: Patient is seen in office for 6 month follow up visit, breast exam. Pt c/o: no concerns regarding the breast mm: 03/12/23 Physician Practice Manager Required: No Accompanied by: Self / Same As Patient Allergies codeine [Codeine] Adverse Reaction (Mild, Verified 10/31/22 10:49) NAUSEA & VOMITING Medication List - Last Reconciled 09/15/23 by Abdi Salvador MD metoprolol succinate ER 50 mg PO DAILY rivaroxaban (Xarelto) 20 mg PO BEDTIME HPI Comments Details: 78 year-old female patient former patient of Dr. Campos returning for breast cancer follow-up examination. She was diagnosed with the infiltrating ductal carcinoma grade 2 and subsequently underwent right breast lumpectomy with needle localization and right axillary sentinel node biopsy on 03/14/2020. Pathology confirmed a 1.8 cm grade 2 infiltrating ductal carcinoma initially with positive margins. Re-excision of the margins performed at the time of the initial surgery revealed extensive DCIS noted to come to within microns of multiple margins. A single right axillary sentinel node was removed and benign. A re- excision was done with a radial ellipse mastopexy, the lateral margin of which remained close with DCIS at about 1 mm. She had an additional small focus of infiltrating ductal carcinoma 0.15 cm located very close to the lateral margin. After discussion with the patient, she elected not to undergo further surgical treatment. She completed radiation therapy in the right breast (Dr. Aguero) and tolerated this well. She is being followed by Dr. Hall. and initially started on letrozole but stopped the medication due to muscle weakness and bilateral hip pain. Since stopping the medication the weakness has improved as has the hip pain. She restarted the Letrozole 2.5 mg p.o. daily but now reports stopping the medication for good due to the side effects. Her Oncotype DX recurrence scar was 3. She denies any new breast symptoms except for some soreness in the right breast at the lower inner quadrant at the site of her surgery. Her most recent mammogram of 03/12/2023 revealed no significant changes and no mammographic evidence of malignancy (BI-RADS 2). She is scheduled for an annual mammogram on 03/17/2024. [facility] Medical History Hypertension Atrial fibrillation Surgical History History of lumpectomy of right breast History of arthroscopy History of cholecystectomy History of hysterectomy Family History Paternal Aunt Breast cancer, Onset Age: 65 Brother Lymphoma Social History Household Members: Spouse Housing: House Are you a primary care professionals to a significant other at home: No Do you presently have visiting nurse or other home services: No Alcohol intake: current Alcohol intake frequency: holidays/special occasions only Patient Tobacco Use Status: Never used Tobacco Second Hand Smoke Exposure: No service: No Current occupational status: retired Review of Systems Const All systems reviewed & are unremarkable except as noted in HPI and below Card Denies chest pain, Denies rapid heart rate and Denies dyspnea Resp Denies cough, Denies hemoptysis and Denies dyspnea Denies nipple discharge Skin/Breast Denies breast swelling, Denies breast skin changes, Denies breast pain, Denies breast mass, Denies change in breast shape, Denies change in pigmentation and Denies nipple discharge Patrick/Lymph Denies lymphadenopathy Physical Exam Vital Signs: Last Vital Signs BP 130/82 09/15/23 11:09 BMI result Body Mass Index 30.7 Const General: cooperative, healthy appearing, comfortable, no acute distress, well developed and alert HEENT Head: Yes normocephalic and Yes atraumatic Chest Other: Left breast: No skin change, no nipple retraction, no nipple discharge, no palpable mass, no enlarged lymph nodes. Right breast: Mild residual radiation change noted, no nipple retraction, no nipple discharge, no palpable mass, no enlarged lymph nodes, well-healed incis ion in the lower inner quadrant. Resp Effort & Inspection: normal respiratory effort Skin General skin exam: no rashes or lesions noted Extrem General: Yes no clubbing, cyanosis or edema Assessment & Plan Assessment & Plan (1) Infiltrating ductal carcinoma of right breast: Code(s): C50.911 - Malignant neoplasm of unspecified site of right female breast Category: Medical Plan: 78-year-old female diagnosed with invasive ductal carcinoma, 1.8 cm in diameter, grade 2 with extensive DCIS. She underwent a re-excision for positive margins and was found to have DCIS to within 1 mm of margin. Patient elected to avoid any further surgery and subsequently underwent radiation therapy. She reports stopping the letrozole due to persistent side effects. Her most recent mammogram of 03/12/2023 revealed no significant changes from her prior study with no mammographic evidence of malignancy (BI-RADS 2). She is scheduled for an annual mammogram on 03/17/2024 at the [facility]. I recommended she return in approximately 6 months for repeat breast examination. She is welcome to call sooner for any new concerns. Coding Level of Care Code Est Pt Level 3 (71270) Diagnoses Infiltrating ductal carcinoma of right breast C50.911
[2023-09-15 11:09] VITALS: BP 130/82; BMI 30.7
== END 2023-09-15 11:23 | disposition home or self-care (01) ==
PROVIDERS: PCP Internal Medicine; Visit Provider Surgery
DX: C50.911 Malignant neoplasm of unspecified site of right female breast (principal)
CPT/HCPCS: 99213

== ENCOUNTER → 2023-09-15 10:58 | Outpatient (BNVA) | payer MEDICARE, SELFPAY | PROVIDERS: PCP Internal Medicine; Visit Provider Surgery | DX: C50.911 Malignant neoplasm of unspecified site of right female breast (principal) | CPT/HCPCS: 99212 ==

== ENCOUNTER 2024-03-17 10:55 | Outpatient (REF) | payer MEDICARE, SELFPAY ==
--- NOTE | ~2024-03-17 | MM_ITS ---
EXAMINATION: MM SCREENING DIGITAL BREAST TOMOSYNTHESIS, BILATERAL CLINICAL INFORMATION: Screening. Asymptomatic. COMPARISON: Mammography: Comparison is made with available priors TECHNIQUE: Digital breast mammography with tomosynthesis is performed in both the craniocaudal and mediolateral oblique views along with computer-aided detection (CAD). FINDINGS: There are scattered areas of fibroglandular density (ACR BI-RADS breast composition Category b). Right post surgical changes. There are no significant masses, abnormal calcifications, or other abnormalities. MM/MM tomosynthesis screening BI IMPRESSION: No mammographic evidence of malignancy. ASSESSMENT: BI-RADS BI-RADS 2 - Benign Findings RECOMMENDATION: Routine annual mammography screening. 1 year F/U This examination should not preclude the clinical evaluation of a suspicious palpable abnormality. This patient's information was entered into a reminder system with a target due date for their next mammogram. Electronically signed by: Nury Hall DO 03/17/2024 09:35 PM SARMAD
== END 2024-03-17 10:56 | disposition home or self-care (01) ==
LOC: HO.MAMMO 10:55
PROVIDERS: PCP Internal Medicine; Visit Provider Internal Medicine
DX: Z12.31 Encounter for screening mammogram for malignant neoplasm of breast (principal)
CPT/HCPCS: 77063; 77067

== ENCOUNTER → 2024-03-17 11:00 | Outpatient (BNV) | payer MEDICARE, SELFPAY | PROVIDERS: PCP Internal Medicine; Visit Provider Internal Medicine | DX: Z12.31 Encounter for screening mammogram for malignant neoplasm of breast (principal) | CPT/HCPCS: 77063; 77067 ==

== ENCOUNTER 2024-07-05 13:14 | Outpatient (AMB) | payer MEDICARE, SELFPAY ==
--- NOTE | 2024-07-05 13:22 | A.OFFVIS_ITS ---
Vital Signs 07/05/24 13:30 Height 5 ft 2 in Weight 174 lb BMI 31.8 BP 132/82 Blood Pressure Location Lt brachial Position Sitting Intake Visit Reasons: 6 mth breast exam follow up Intake Note: Patient is seen in office for 6 month follow up visit, breast exam. Pt c/o: no concern or changes mm:03/17/24 Transfer Table Operator Helper Required: No Senior Ui Ux Developer: Senior Ui Ux Developer Present Accompanied by: Self / Same As Patient Allergies codeine [Codeine] Adverse Reaction (Mild, Verified 07/05/24 13:31) NAUSEA & VOMITING Medication List - Last Reconciled 07/05/24 by Abdi Salvador MD metoprolol succinate ER 50 mg PO DAILY rivaroxaban (Xarelto) 20 mg PO BEDTIME HPI Comments Details: 78 year-old female patient former patient of Dr. Campos returning for breast cancer follow-up examination. She was diagnosed with the infiltrating ductal carcinoma grade 2 and subsequently underwent right breast lumpectomy with needle localization and right axillary sentinel node biopsy on 03/14/2020. Pathology confirmed a 1.8 cm grade 2 infiltrating ductal carcinoma initially with positive margins. Re-excision of the margins performed at the time of the initial surgery revealed extensive DCIS noted to be within microns of multiple margins. A single right axillary sentinel node was removed and benign. A re-excision was done with a radial ellipse mastopexy, the lateral margin of which remained close with DCIS at about 1 mm. She had an additional small focus of infiltrating ductal carcinoma 0.15 cm located very close to the lateral margin. After discussion with the patient, she elected not to undergo further surgical treatment. She completed radiation therapy in the right breast (Dr. Aguero) and tolerated this well. She is being followed by Dr. Hall. and initially started on letrozole but stopped the medication due to muscle weakness and bilateral hip pain. Since stopping the medication the weakness has improved as has the hip pain. She restarted the Letrozole 2.5 mg p.o. daily but now reports stopping the medication for good due to the side effects. Her Oncotype DX recurrence scar was 3. She denies any new breast symptoms except for some soreness in the right breast at the lower inner quadrant at the site of her surgery. Her most recent mammogram of 03/17/2024 revealed no significant changes and no mammographic evidence of malignancy (BI-RADS 2). Annual screening mammography is recommended in 1 year. [facility] Medical History Hypertension Atrial fibrillation Surgical History History of lumpectomy of right breast History of arthroscopy History of cholecystectomy History of hysterectomy Family History Paternal Aunt Breast cancer, Onset Age: 65 Brother Lymphoma Social History Household Members: Spouse Housing: House Are you a primary career services coordinator to a significant other at home: No Do you presently have visiting nurse or other home services: No Alcohol intake: current Alcohol intake frequency: holidays/special occasions only Patient Tobacco Use Status: Never used Tobacco Second Hand Smoke Exposure: No service: No Current occupational status: retired Review of Systems Const All systems reviewed & are unremarkable except as noted in HPI and below Card Denies chest pain, Reports irregular heart rhythm and Denies dyspnea Resp Denies cough, Denies hemoptysis and Denies dyspnea Denies nipple discharge Skin/Breast Denies breast swelling, Denies breast skin changes, Denies breast pain, Denies breast mass, Denies change in breast shape, Denies change in pigmentation and Denies nipple discharge Patrick/Lymph Denies lymphadenopathy Physical Exam Const General: cooperative, healthy appearing, comfortable, no acute distress, well developed and alert HEENT Head: Yes normocephalic and Yes atraumatic Chest Other: Left breast: No skin change, no nipple retraction, no nipple discharge, no palpable mass, no enlarged lymph nodes. Right breast: Mild residual radiation change noted, no nipple retraction, no nipple discharge, no palpable mass, no enlarged lymph nodes, well-healed incision in the lower inner quadrant. Resp Effort & Inspection: normal respiratory effort Skin General skin exam: no rashes or lesions noted Extrem General: Yes no clubbing, cyanosis or edema Assessment & Plan Assessment & Plan (1) Infiltrating ductal carcinoma of right breast: Code(s): C50.911 - Malignant neoplasm of unspecified site of right female breast Category: Medical Plan: 79-year-old female diagnosed with invasive ductal carcinoma, 1.8 cm in diameter, grade 2 with extensive DCIS. She underwent a re-excision for positive margins and was found to have DCIS to within 1 mm of margin. Patient elected to avoid any further surgery and subsequently underwent radiation therapy. She reports stopping the letrozole due to persistent side effects. Her most recent mammogram of 03/17/2024 revealed no significant changes from her prior study with no mammographic evidence of malignancy (BI-RADS 2). Screening mammogram is recommended in 1 year. I recommended she return in approximately 6 months for repeat breast examination. She is welcome to call sooner for any new concerns. Coding Level of Care Code Est Pt Level 3 (69024) Complex EM visit Add On G2211 Diagnoses Infiltrating ductal carcinoma of right breast C50.911
[2024-07-05 13:30] VITALS: BP 132/82; BMI 31.8
--- OUTSIDE RECORDS SUMMARY | 2024-07-05 16:33 | XMS_ITS | Clinical Summary ---
Author Organization [facility] Address [address] [place] [address] Care Team Providers Care Transcribing Operators Supervisor Name Role Phone Unavailable Primary Care Provider Unavailabl e Social History Tobacco Use Types Packs/Day Years Used Date Smoking Tobacco: Never Assessed Sex and Gender Information Value Date Recorded Sex Assigned at Not on file Gender Identity Not on file Sexual Orientation Not on file Plan of Treatment Health Maintenance Due Date Last Done Comments DTaP/Tdap/Td Vaccines (1 - Tdap) 08/24/1962 Pneumococcal Vaccines 50+ (1 of 1 - PCV) 08/24/1993 Zoster (Shingles) Vaccine (1 of 2) 08/24/1993 RSV Vaccine 60 years and old er and Patients (1 - 1-dose 75+ series) 08/24/2018 COVID-19 Vaccine (2023-2 5 season) 2024 Hepatitis B Vaccines Aged Out No long er eligible based on patient's age to complete this topic
== END 2024-07-05 13:40 | disposition home or self-care (01) ==
PROVIDERS: PCP Internal Medicine; Visit Provider Surgery
DX: C50.911 Malignant neoplasm of unspecified site of right female breast (principal)
CPT/HCPCS: 99213; G2211

== ENCOUNTER → 2024-07-05 13:14 | Outpatient (BNVA) | payer MEDICARE, SELFPAY | PROVIDERS: PCP Internal Medicine; Visit Provider Surgery | DX: C50.911 Malignant neoplasm of unspecified site of right female breast (principal) | CPT/HCPCS: 99212 ==

== ENCOUNTER 2025-03-24 10:45 | Outpatient (REF) | payer MEDICARE, SELFPAY ==
--- NOTE | ~2025-03-24 | MM_ITS ---
EXAMINATION: MM SCREENING DIGITAL BREAST TOMOSYNTHESIS, BILATERAL CLINICAL INFORMATION: Screening. Asymptomatic. COMPARISON: Mammography: Comparison is made with available priors TECHNIQUE: Digital breast mammography with tomosynthesis is performed in both the craniocaudal and mediolateral oblique views along with computer-aided detection (CAD). FINDINGS: There are scattered areas of fibroglandular density. Right postsurgical changes. There are no significant masses, abnormal calcifications, or other abnormalities. MM/MM tomosynthesis screening BI IMPRESSION: No mammographic evidence of malignancy. ASSESSMENT: BI-RADS Category 2: Benign RECOMMENDATION: Routine annual mammography screening. 1 year F/U This examination should not preclude the clinical evaluation of a suspicious palpable abnormality. This patient's information was entered into a reminder system with a target due date for their next mammogram. Electronically signed by: Nury Hall DO 03/28/2025 09:06 AM SARMAD
== END 2025-03-24 10:46 | disposition home or self-care (01) ==
LOC: HO.MAMMO 10:45
PROVIDERS: Visit Provider Internal Medicine
DX: Z12.31 Encounter for screening mammogram for malignant neoplasm of breast (principal)
CPT/HCPCS: 77063; 77067

== ENCOUNTER → 2025-03-24 11:00 | Outpatient (BNV) | payer MEDICARE, SELFPAY | PROVIDERS: Visit Provider Internal Medicine | DX: Z12.31 Encounter for screening mammogram for malignant neoplasm of breast (principal) | CPT/HCPCS: 77063; 77067 ==

== ENCOUNTER 2025-04-03 10:51 | Outpatient (AMB) | payer MEDICARE, SELFPAY ==
--- NOTE | 2025-04-03 10:53 | A.OFFVIS_ITS ---
Vital Signs 04/03/25 11:02 Height 5 ft 2 in Weight 179 lb BMI 32.7 BP 130/82 Blood Pressure Location Lt brachial Position Sitting Intake Visit Reasons: 6 mth breast exam follow up Intake Note: Patient is seen in office for 6 month follow up visit, breast exam. Pt c/o: denies any concerns mm: 03/24/25 Combo Welder Required: No Accompanied by: Self / Same As Patient Allergies codeine (Codeine) Adverse Reaction (Mild, Verified 04/03/25 10:55) NAUSEA & VOMITING Medication List - Last Reconciled 04/03/25 by Abdi Salvador MD metoprolol succinate ER 50 mg PO DAILY rivaroxaban (Xarelto) 20 mg PO BEDTIME HPI Comments Details: 79 year-old female patient former patient of Dr. Campos returning for breast cancer follow-up examination. She was diagnosed with the infiltrating ductal carcinoma grade 2 and subsequently underwent right breast lumpectomy with needle localization and right axillary sentinel node biopsy on 03/14/2020. Pathology confirmed a 1.8 cm grade 2 infiltrating ductal carcinoma initially with positive margins. Re-excision of the margins performed at the time of the initial surgery revealed extensive DCIS noted to be within microns of multiple margins. A single right axillary sentinel node was removed and benign. A re-excision was done with a radial ellipse mastopexy, the lateral margin of which remained close with DCIS at about 1 mm. She had an additional small focus of infiltrating ductal carcinoma 0.15 cm located very close to the lateral margin. After discussion with the patient, she elected not to undergo further surgical treatment. She completed radiation therapy in the right breast (Dr. Aguero) and tolerated this well. She is being followed by Dr. Hall. and initially started on letrozole but stopped the medication due to muscle weakness and bilateral hip pain. Since stopping the medication the weakness has improved as has the hip pain. She restarted the Letrozole 2.5 mg p.o. daily but now reports stopping the medication for good due to the side effects. Her Oncotype DX recurrence scar was 3. She denies any new breast symptoms except for some soreness in the right breast at the lower inner quadrant at the site of her surgery. Her most recent mammogram of 03/24/2025 revealed no significant changes and no mammographic evidence of malignancy (BI-RADS 2). Annual screening mammography is recommended in 1 year. [facility] Medical History Hypertension Atrial fibrillation Surgical History History of lumpectomy of right breast History of arthroscopy History of cholecystectomy History of hysterectomy Family History Paternal Aunt Breast cancer, Onset Age: 65 Brother Lymphoma Social History Household Members: Spouse Housing: House Are you a primary client care coordinator to a significant other at home: No Do you presently have visiting nurse or other home services: No Alcohol intake: current Alcohol intake frequency: holidays/special occasions only Patient Tobacco Use Status: Never used Tobacco Second Hand Smoke Exposure: No service: No Current occupational status: retired Review of Systems Const All systems reviewed & are unremarkable except as noted in HPI and below Card Denies chest pain, Reports irregular heart rhythm and Denies dyspnea Resp Denies cough, Denies hemoptysis and Denies dyspnea Denies nipple discharge Skin/Breast Denies breast swelling, Denies breast skin changes, Denies breast pain, Denies breast mass, Denies change in breast shape, Denies change in pigmentation and Denies nipple discharge Patrick/Lymph Denies lymphadenopathy Physical Exam Const General: cooperative, healthy appearing, comfortable, no acute distress, well developed and alert HEENT Head: Yes normocephalic and Yes atraumatic Chest Other: Left breast: No skin change, no nipple retraction, no nipple discharge, no palpable mass, no enlarged lymph nodes. Right breast: Mild residual radiation change noted, no nipple retraction, no nipple discharge, no palpable mass, no enlarged lymph nodes, well-healed incision in the lower inner quadrant. Tender to palpation throughout the right breast. Resp Effort & Inspection: normal respiratory effort Skin General skin exam: no rashes or lesions noted Neuro Other: Mobility Assessment: 1. 3 meter assessment time (seconds):6 2. Gait observations: Normal balance and gait Extrem General: Yes no clubbing, cyanosis or edema Assessment & Plan Assessment & Plan (1) Infiltrating ductal carcinoma of right breast: Code(s): C50.911 - Malignant neoplasm of unspecified site of right female breast Category: Medical Plan: 79-year-old female diagnosed with invasive ductal carcinoma, 1.8 cm in diameter, grade 2 with extensive DCIS. She underwent a re-excision for positive margins and was found to have DCIS to within 1 mm of margin. Patient elected to avoid any further surgery and subsequently underwent radiation therapy. She reports stopping the letrozole due to persistent side effects. Her most recent mammogram of 03/24/2025 revealed no significant changes from her prior study with no mammographic evidence of malignancy (BI-RADS 2). Screening mammogram is recommended in 1 year. I recommended follow-up examination in 1 year, sooner PRN. Coding Level of Care Code Est Pt Level 3 (66082) Complex visit Add On G2211 Diagnoses Infiltrating ductal carcinoma of right breast C50.911
[2025-04-03 11:02] VITALS: BP 130/82; BMI 32.7
--- OUTSIDE RECORDS SUMMARY | 2025-04-03 14:01 | XMS_ITS | Encounter Summary ---
Author Organization [facility] Address [address] [facility] [address] [place] [address] Phone Care Team Providers Care Wild Oyster Harvester Name Role Phone David Post MD Primary Care Provider [phone] Curry Serna MD Unavailable [phone] Encounter Details Date Type Department Care Team (Late Contact Info) Description 08/05/2023 Procedure Pass OR Admitting Dept - Virtual Department [address] [place] [address] Social History Tobacco Use Types Packs/Day Years Used Date Smoking Tobacco: Former Cigarettes 1 32 1 960 - 05/04/1991 Smokeless Tobacco: Never Comments:quit in 1991 Alcohol Use Standard Drinks/Week Comments Yes 3 (1 standard drink = 0.6 oz pur e alcohol) glass of wine every day Education Answer Date Recorded Are you interested in more education? Not on marcell e 08/28/2022 Are you concerned about learning? Not on file 08/28/2022 No 08/28/2022 No 08/28/2022 Digital Access Answer Date Recorded No 09/26/2022 No 09/26/2022 Reliable internet access at home? Not on file 09/26/2022 Device with a working camera? Not on file Comments No Sex and Gender Information Value Date Recorded Sex Assigned at Female 02/11/2019 4:02 PM EDT Legal Sex Female 10:10 PM EDT Gender Identity Female 02/11/2019 4:02 PM EDT Sexual Orientation Straight 02/11/2019 4: 02 PM EDT documented as of this encounter Plan of Treatment Upcoming Encounters Date Type Department Care Team (Late Contact Info) Description 08/18/2025 1:40 PM EDT Office Visit [facility] [address] 3rd Floor, [address] [place] [address] Arnold Petersen MD [address] [facility], [address] [place] [address] [email or web address] documented as of this encounter Visit Diagnoses Not on filedocumented in this encounter Additional Health Concerns Assessment Noted Time PHQ-2 Depression Total Score: 0 09/12/19 23 1:05 PM EDT documented as of this encounter Care Teams Wild Oyster Harvester Relationship Specialty Start Date End Date David Post MD [address] [place] [address] [email or web address] PCP - General Internal Medicine 04/02/17 Curry Serna MD [address] [place] [address] Drive [address] [place] [address] Gastroenterology 07/20/19 documented as of this encounter Additional Source Comments The information contained in this document represents components of the legal health record. It is not the complete legal health record.[facility]
--- OUTSIDE RECORDS SUMMARY | 2025-04-03 14:01 | XMS_ITS | Encounter Summary ---
Author Organization [facility] Address [address] [facility] [address] [facility] [address] [place] [address] Phone Care Team Providers Care Antique Finisher Name Role Phone David Post MD Primary Care Provider [phone] Curry Serna MD Unavailable [phone] Encounter Details Date Type Department Care Team (Late st Contact Info) Description 04/06/2020 Ancillary Orders [facility],Outside Imaging [address] [place] [address] System, Provider Not In, [facility] [address] [address] Social History Tobacco Use Types Packs/Day Years Used Date Smoking Tobacco: Former Cigarettes 1 20 0 05/04/1971 - 05/04/1991 Smokeless Tobacco: Never Comments:quit in 1991 Alcohol Use Standard Drinks/Week Comments Yes 0 (1 standard drink = 0.6 oz pur e alcohol) glass of wine every day Comments No Sex and Gender Information Value Date Recorded Sex Assigned at Female 02/11/2019 4:02 PM EDT Legal Sex Female 10:10 PM EDT Gender Identity Female 02/11/2019 4:02 PM EDT Sexual Orientation Straight 02/11/2019 4: 02 PM EDT documented as of this encounter Plan of Treatment Upcoming Encounters Date Type Department Care Team (Late st Contact Info) Description 08/18/2025 1:40 PM EDT Office Visit [facility] [address] [place] [address] 3rd Floor, [address] [place] [address] Arnold Petersen MD [address] [facility], [address] [place], [place] [id number] [email or web address] documented as of this encounter Results * NM Bone Outside (No Interpretation) (03/14/2020 12:10 AM EST) Narrative SYSTEMGENERATED, DOCUMENTATION - 04/06/2020 1:34 PM EST This study is for PACS storage only and not for interpretation. us Provider Not In System [facility] OUTSIDE IMAGING W /OUT INTERPRETATION Final Result documented in this encounter Visit Diagnoses Not on filedocumented in this encounter Additional Health Concerns Infection Onset Date Last Indicated Resolved Time CoV-Risk 02/21/2022 02/21/2022 03/04/2022 1:24 AM EDT Assessment Noted Time PHQ-2 Depression Total Score: 0 11/06/19 19 10:02 AM EDT documented as of this encounter Care Teams Antique Finisher Relationship Specialty Start Date End Date David Post MD [address] [place] [address] [email or web address] PCP - General Internal Medicine 04/02/17 Curry Serna MD [address] [facility] [address] [place] [address] Gastroenterology 07/20/19 documented as of this encounter Additional Source Comments The information contained in this document represents components of the legal health record. It is not the complete legal health record.[facility]
--- OUTSIDE RECORDS SUMMARY | 2025-04-03 14:01 | XMS_ITS | Encounter Summary ---
Author Organization [facility] Address [address] [facility] [address] [place] [address] Phone Care Team Providers Care Forest Practices Field Coordinator Name Role Phone David Post MD Primary Care Provider [phone] Curry Serna MD Unavailable [phone] Encounter Details Date Type Department Care Team (Late st Contact Info) Description 04/06/2020 Ancillary Orders [facility],Outside Imaging [address] [place] [address] System, Provider Not In, [facility] [address] [address] Social History Tobacco Use Types Packs/Day Years [...] Description 08/18/2025 1:40 PM EDT Office Visit [facility] [address] [place] [address] 3rd Floor, [address] [place] [address] Arnold Petersen MD [address] [facility], [address] [place], [place] [id number] documented as of this encounter Results * US Breast Outside (No Interpretation) (02/17/2020 12:05 AM EDT) Narrative SYSTEMGENERATED, DOCUMENTATION - 04/06/2020 1:39 PM EST This study is for PACS [...] documented as of this encounter Care Teams Forest Practices Field Coordinator Relationship Specialty Start Date End Date David Post MD [address] [place] [address] [email or web address] PCP - General Internal Medicine 04/02/17 Curry Serna MD [address] [facility] [address] [place] [address] Gastroenterology 07/20/19 documented as of this encounter Additional Source Comments The information contained in this document represents components of the legal health record. It is not the complete legal health record.[facility]
--- OUTSIDE RECORDS SUMMARY | 2025-04-03 14:01 | XMS_ITS | Encounter Summary ---
Author Organization [facility] Address [address] [facility] [address] [place] [address] Phone Care Team Providers Care Stretcher And Drier Name Role Phone David Post MD Primary Care Provider [phone] Curry Serna MD Unavailable [phone] Encounter Details Date Type Department Care Team (Late st Contact Info) Description 04/06/2020 Ancillary Orders [facility],Outside Imaging [address] [place] [address] System, Provider Not In, [facility] [address] [address] Social History Tobacco Use Types Packs/Day Years [...] Description 08/18/2025 1:40 PM EDT Office Visit [facility] [address] [place] [address] 3rd Floor, [address] [place] [address] Arnold Petersen MD [address] [facility], [address] [place], [place] [id number] [email or web address] documented as of this encounter Results * Mammogram Outside (No Interpretation) (02/28/2020 12:05 AM EDT) Narrative SYSTEMGENERATED, DOCUMENTATION - 04/06/2020 1:37 PM EST This study is for PACS [...] documented as of this encounter Care Teams Stretcher And Drier Relationship Specialty Start Date End Date David Post MD [address] [place] [address] [email or web address] PCP - General Internal Medicine 04/02/17 Curry Serna MD [address] [facility] [address] [place] [address] Gastroenterology 07/20/19 documented as of this encounter Additional Source Comments The information contained in this document represents components of the legal health record. It is not the complete legal health record.[facility]
--- OUTSIDE RECORDS SUMMARY | 2025-04-03 14:01 | XMS_ITS | Encounter Summary ---
Author Organization [facility] Address [address] [facility] [address] [place] [address] Phone Care Team Providers Care Product Management Intern Name Role Phone David Post MD Primary Care Provider [phone] Curry Serna MD Unavailable [phone] Encounter Details Date Type Department Care Team (Late st Contact Info) Description 04/06/2020 Ancillary Orders [facility],Outside Imaging 30 [place] [address] System, Provider Not In, [facility] [address] [address] Social History Tobacco Use Types Packs/Day Years [...] Description 08/18/2025 1:40 PM EDT Office Visit [facility] [address] [place] [address] 3rd Floor, [address] [place] [address] Arnold Petersen MD 22 [facility], [address] [place], [place] [id number] documented as of this encounter Results * Mammogram Outside (No Interpretation) (02/11/2019 12:00 AM EDT) Narrative SYSTEMGENERATED, DOCUMENTATION - 04/06/2020 1:41 PM EST This study is for PACS [...] documented as of this encounter Care Teams Product Management Intern Relationship Specialty Start Date End Date David Post MD 40 [place] [address] [email or web address] PCP - General Internal Medicine 04/02/17 Curry Serna MD 10 [facility] [address] [place] [address] Gastroenterology 07/20/19 documented as of this encounter Additional Source Comments The information contained in this document represents components of the legal health record. It is not the complete legal health record.[facility]
--- OUTSIDE RECORDS SUMMARY | 2025-04-03 14:01 | XMS_ITS | Encounter Summary ---
Author Organization [facility] Address [address] [facility] [address] [place] [address] Phone Care Team Providers Care Grades 7 8 Tutor Name Role Phone David Post MD Primary Care Provider [phone] Curry Serna MD Unavailable [phone] Encounter Details Date Type Department Care Team (Late st Contact Info) Description 04/06/2020 Ancillary Orders [facility],Outside Imaging 30 [place] [address] System, Provider Not In, [facility] [address] [address] Social History Tobacco Use Types Packs/Day Years [...] Description 08/18/2025 1:40 PM EDT Office Visit [facility] [address] [place] [address] 3rd Floor, [address] [place] [address] Arnold Petersen MD 22 [facility], [address] [place], [place] [id number] [email or web address] documented as of this encounter Results * US Breast Outside (No Interpretation) (03/14/2020 12:00 AM EST) Narrative SYSTEMGENERATED, DOCUMENTATION - 04/06/2020 1:19 PM EST This study is for PACS [...] documented as of this encounter Care Teams Grades 7 8 Tutor Relationship Specialty Start Date End Date David Post MD 40 [place] [address] [email or web address] PCP - General Internal Medicine 04/02/17 Curry Serna MD 10 [facility] [address] [place] [address] Gastroenterology 07/20/19 documented as of this encounter Additional Source Comments The information contained in this document represents components of the legal health record. It is not the complete legal health record.[facility]
--- OUTSIDE RECORDS SUMMARY | 2025-04-03 14:01 | XMS_ITS | Encounter Summary ---
Author Organization [facility] Address [address] [facility] [address] [place] [address] Phone Care Team Providers Care Fibre Optic Cable Splicer Name Role Phone David Post MD Primary Care Provider [phone] Curry Serna MD Unavailable [phone] Encounter Details Date Type Department Care Team (Late st Contact Info) Description 04/06/2020 Ancillary Orders [facility],Outside Imaging 30 [place] [address] System, Provider Not In, [facility] [address] [address] Social History Tobacco Use Types Packs/Day Years [...] Description 08/18/2025 1:40 PM EDT Office Visit [facility] [address] [place] [address] 3rd Floor, [address] [place] [address] Arnold Petersen MD 22 [facility], [address] [place], [place] [phone] [email or web address] documented as of this encounter Results * Mammogram Outside (No Interpretation) (02/17/2020 12:00 AM EDT) Narrative SYSTEMGENERATED, DOCUMENTATION - 04/06/2020 1:38 PM EST This study is for PACS [...] documented as of this encounter Care Teams Fibre Optic Cable Splicer Relationship Specialty Start Date End Date David Post MD 40 [place] [address] [email or web address] PCP - General Internal Medicine 04/02/17 Curry Serna MD 10 [facility] [address] [place] [address] Gastroenterology 07/20/19 documented as of this encounter Additional Source Comments The information contained in this document represents components of the legal health record. It is not the complete legal health record.[facility]
--- OUTSIDE RECORDS SUMMARY | 2025-04-03 14:01 | XMS_ITS | Encounter Summary ---
Author Organization [facility] Address [address] [facility] [address] [place] [address] Phone Care Team Providers Care Filler Picker Name Role Phone David Post MD Primary Care Provider [phone] Curry Serna MD Unavailable [phone] Encounter Details Date Type Department Care Team (Late st Contact Info) Description 04/06/2020 Ancillary Orders [facility],Outside Imaging 30 [place] [address] System, Provider Not In, [facility] [address] [address] Social History Tobacco Use Types Packs/Day Years [...] Description 08/18/2025 1:40 PM EDT Office Visit [facility] [address] [place] [address] 3rd Floor, [address] [place] [address] Arnold Petersen MD 22 [facility], [address] [place], [place] [phone] documented as of this encounter Results * US Breast Outside (No Interpretation) (02/28/2020 12:00 AM EDT) Narrative SYSTEMGENERATED, DOCUMENTATION - 04/06/2020 1:35 PM EST This study is for PACS [...] documented as of this encounter Care Teams Filler Picker Relationship Specialty Start Date End Date David Post MD 40 [place] [address] [email or web address] PCP - General Internal Medicine 04/02/17 Curry Serna MD 10 [facility] [address] [place] [address] Gastroenterology 07/20/19 documented as of this encounter Additional Source Comments The information contained in this document represents components of the legal health record. It is not the complete legal health record.[facility]
--- OUTSIDE RECORDS SUMMARY | 2025-04-03 14:01 | XMS_ITS | Encounter Summary ---
Author Organization [facility] Address [address] [facility] [address] [place] [address] Phone Care Team Providers Care Dog Barber Name Role Phone Wiliam Blackwell MD Unavailable David Post MD Unavailable Wallace Barnard MD Unavailable Eladio Beltran MD Unavailable [phone] Kaleigh Beck NP Unavailable [phone] Lacho Forbes MD Unavailable [phone] Syed Goddard MD Unavailable [phone] David Post MD Primary Care Provider [phone] Curry Serna MD Unavailable Encounter Details Date Type Department Care Team (Late st Contact Info) Description 07/14/2019 Transcribe Orders [facility] [address] [place], [place] [phone] Curry Serna MD 10 [facility] [address] [place], [place] [phone] Abnormal computerized tomography of biliary tract (Primary Dx); Pancreatolithiasis Social History Tobacco Use Types Packs/Day Years [...] Description 08/18/2025 1:40 PM EDT Office Visit [facility] [address] [place] [address] 3rd Floor, [address] [place] [address] Arnold Petersen MD 22 [facility], [address] [place] [address] [email or web address] documented as of this encounter Results * LFTs (hepatic panel) (07/14/2019 10:37 AM EDT) [facility] 54 39 - 117 U/L [facility] TOTAL BILIRUBIN 0.4 0.0 - 1.2 mg/dL [facility] DIRECT BILIRUBIN <0.2 0 - 0.3 mg/dL [facility] Bilirubin (Indirect) NOT CALCULATED 0 - 1.5 mg/dL [facility] AST 28 0 - 37 U/L [facility] ALT 19 0 - 40 U/L [facility] TOTAL PROTEIN 7.3 6.5 - 8.0 g/dL [facility] ALBUMIN 4.3 3.9 - 4.8 g/dL [facility] GLOBULIN 3.0 1 - 4.8 g/dL [facility] A/G Ratio 1.43 1.00 - 4.80 RATIO [facility] Blood 07/14/2019 10:3 7 AM EDT 07/14/2019 10:38 AM EDT us Curry eSrna MD LAB BLOOD BKR ORDERABLES Fi nal Result [facility] 30 [place] [address] documented in this encounter Visit Diagnoses Diagnosis Abnormal computerized tomography of biliary tract- Primary Pancreatolithiasis Other specified disease of pancreas documented in this encounter Additional Health Concerns Infection Onset Date Last Indicated Resolved Time CoV-Risk 02/21/2022 02/21/2022 03/04/2022 1:24 AM EDT Assessment Noted Time PHQ-2 Depression Total Score: 0 11/06/19 19 10:02 AM EDT documented as of this encounter Care Teams Dog Barber Relationship Specialty Start Date End Date David Post MD 40 [place] [address] [email or web address] PCP - General Internal Medicine 04/02/17 Wiliam Blackwell MD 22 [place] [address] [email or web address] Historical LMR Provider 02/16/17 07/19/19 David Post MD 40 [place] [address] Historical LMR Provider 02/16/17 07/19/19 Wallace Barnard MD [address] [place] [address] Historical LMR Provider 02/16/17 0 Eladio Beltran MD [address] [place] [address] Historical LMR Provider 02/16/17 07/19/19 Kaleigh Beck NP [address] [place] [address] 6 [place] [address] Historical LMR Provider 02/16/17 07/19/19 Lacho Forbes MD [address] [place] [address] Historical LMR Provider 02/16/17 Syed Goddard MD [address] [address] [email or web address] Historical LMR Provider 02/16/17 07/19/19 Curry Serna MD 10 [facility] [address] [place] [address] Gastroenterology 07/20/19 documented as of this encounter Additional Source Comments The information contained in this document represents components of the legal health record. It is not the complete legal health record.[facility]
--- OUTSIDE RECORDS SUMMARY | 2025-04-03 14:01 | XMS_ITS | Encounter Summary ---
Author Organization [facility] Address [address] [facility] [address] [place] [address] Phone Care Team Providers Care Top Lift Scourer Name Role Phone David Post MD Primary Care Provider [phone] Curry Serna MD Unavailable [phone] Encounter Details Date Type Department Care Team (Late st Contact Info) Description 04/06/2020 Ancillary Orders [facility],Outside Imaging 30 [place] [address] System, Provider Not In, [facility] [address] [address] Social History Tobacco Use Types Packs/Day Years [...] Description 08/18/2025 1:40 PM EDT Office Visit [facility] [address] [place] [address] 3rd Floor, [address] [place] [address] Arnold Petersen MD 22 [facility], [address] [place], [place] [phone] [email or web address] documented as of this encounter Results * Mammogram Outside (No Interpretation) (03/14/2020 12:05 AM EST) Narrative SYSTEMGENERATED, DOCUMENTATION - 04/06/2020 1:33 PM EST This study is for PACS [...] documented as of this encounter Care Teams Top Lift Scourer Relationship Specialty Start Date End Date David Post MD 40 [place] [address] [email or web address] PCP - General Internal Medicine 04/02/17 Curry Serna MD 10 [facility] [address] [place] [address] Gastroenterology 07/20/19 documented as of this encounter Additional Source Comments The information contained in this document represents components of the legal health record. It is not the complete legal health record.[facility]
--- OUTSIDE RECORDS SUMMARY | 2025-04-03 14:01 | XMS_ITS | Encounter Summary ---
Author Organization [facility] Address [address] [place] [address] Phone Care Team Providers Care Control Systems Designer Name Role Phone David Post MD Primary Care Provider [phone] Curry Serna MD Unavailable [phone] Encounter Details Date Type Department Care Team (Late st Contact Info) Description 06/29/2023 Prep for Surgery [facility] Orthopedics & Sports Medicine [address] [place] [address] Patsy Galindo MD [address] [place] [address] Orthopedics & Sports Medicine, [facility] [place] [address] [email or web address] Social History Tobacco Use Types Packs/Day Years [...] Description 08/18/2025 1:40 PM EDT Office Visit [facility] [address] [facility] 3rd Floor, [address] [place] [address] Arnold Petersen MD 22 [facility], [address] [place] [address] [email or web address] documented as of this encounter Visit Diagnoses Not on filedocumented in this encounter Additional Health Concerns Assessment Noted Time PHQ-2 Depression Total Score: 0 09/12/19 23 1:05 PM EDT documented as of this encounter Care Teams Control Systems Designer Relationship Specialty Start Date End Date David Post MD [address] [place] [address] PCP - General Internal Medicine 04/02/17 Curry Serna MD [address] [place] [address] [address] [place] [address] Gastroenterology 07/20/19 documented as of this encounter Additional Source Comments The information contained in this document represents components of the legal health record. It is not the complete legal health record.[facility]
--- OUTSIDE RECORDS SUMMARY | 2025-04-03 14:01 | XMS_ITS | Encounter Summary ---
Author Organization [facility] Address [address] [facility] [address] [place] [address] Phone Care Team Providers Care Furnace Maintenance Name Role Phone David Post MD Primary Care Provider [phone] Curry Serna MD Unavailable [phone] Encounter Details Date Type Department Care Team (Late st Contact Info) Description 03/28/2025 Orders Only [facility] Internal Medicine [address] [place] [address] Provider, MD [facility] [place] [id number] Social History Tobacco Use Types Packs/Day Years [...] with a working camera? Not on file Intimate Partner Violence Answer Date R ecorded Denied Basic Needs Not on file 09/17/2023 In the past 12 months have y ou been in a relationship with a person who hurts, threatens, or tries to control you? No 09/17/2023 Worried food would run out Not on file 09/16 In the past 12 months have y ou been in a relationship with a person who hurts, threatens, or tries to control you? No 09/17/2023 Comments No Sex and Gender Information Value [...] Description 08/18/2025 1:40 PM EDT Office Visit [facility] [address] [place] [address] 3rd Floor, [address] [place] [address] Arnold Petersen MD [address] [place] [address] [email or web address] documented as of this encounter Procedures Procedure Name Priority Date/Time Associated Diagnosis Comments HM MAMMOGRAPHY Routine 03/24/2025 10:08 AM EST HM MAMMOGRAPHY Routine 03/24/2025 10:06 AM EST documented in this encounter Results * HM MAMMOGRAPHY FOR RESULT ENTRY ONLY (03/24/2025 10:08 AM EST) us Historical Provider HEALTH MAINTENANCE Final Result * HM MAMMOGRAPHY FOR RESULT ENTRY ONLY (03/24/2025 10:06 AM EST) us Historical Provider HEALTH MAINTENANCE Final Result documented in this encounter Visit Diagnoses Not on filedocumented in this encounter Additional Health Concerns Assessment Noted Time PHQ-2 Depression Total Score: 0 09/17/19 24 1:07 PM EDT documented as of this encounter Care Teams Furnace Maintenance Relationship Specialty Start Date End Date David Post MD 40 [place] [address] [email or web address] PCP - General Internal Medicine 04/02/17 Curry Serna MD [address] [place] [address] 107 [place] [address] Gastroenterology 07/20/19 documented as of this encounter Additional Source Comments The information contained in this document represents components of the legal health record. It is not the complete legal health record.[facility]
--- OUTSIDE RECORDS SUMMARY | 2025-04-03 14:01 | XMS_ITS | Encounter Summary ---
Author Organization [facility] Address [address] [facility] [address] [place] [address] Phone Care Team Providers Care Rework Machine Operator Name Role Phone David Post MD Primary Care Provider [phone] Curry Serna MD Unavailable [phone] Encounter Details Date Type Department Care Team (Late st Contact Info) Description 04/06/2020 Ancillary Orders [facility],Outside Imaging 30 [place] [address] System, Provider Not In, PhD Partners [address] [address] Social History Tobacco Use Types Packs/Day Years [...] Description 08/18/2025 1:40 PM EDT Office Visit [facility] [address] [place] [address] 3rd Floor, [address] [place] [address] Arnold Petersen MD 22 [facility], [address] [place], [place] [phone] documented as of this encounter Results * US Breast Outside (No Interpretation) (02/22/2019 12:00 AM EDT) Narrative SYSTEMGENERATED, DOCUMENTATION - 04/06/2020 1:40 PM EST This study is for PACS [...] documented as of this encounter Care Teams Rework Machine Operator Relationship Specialty Start Date End Date David Post MD 40 [place] [address] [email or web address] PCP - General Internal Medicine 04/02/17 Curry Serna MD 10 [facility] [address] [place] [address] Gastroenterology 07/20/19 documented as of this encounter Additional Source Comments The information contained in this document represents components of the legal health record. It is not the complete legal health record.[facility]
--- OUTSIDE RECORDS SUMMARY | 2025-04-03 14:01 | XMS_ITS | Encounter Summary ---
Author Organization [facility] Address [address] [facility] [address] [place] [address] Phone Care Team Providers Care Experimental Plastics Fabricator Name Role Phone David Post MD Primary Care Provider [phone] Curry Serna MD Unavailable [phone] Encounter Details Date Type Department Care Team (Late st Contact Info) Description 04/06/2020 Ancillary Orders [facility],Outside Imaging 30 [place] [address] System, Provider Not In, PhD Partners [address] [address] Social History Tobacco Use Types Packs/Day Years [...] Description 08/18/2025 1:40 PM EDT Office Visit [facility] [address] [place] [address] 3rd Floor, [address] [place] [address] Arnold Petersen MD 22 [facility], [address] [place], [place] [phone] documented as of this encounter Results * Mammogram Outside (No Interpretation) (10/26/2017 12:00 AM EDT) Narrative SYSTEMGENERATED, DOCUMENTATION - 04/06/2020 1:57 PM EST This study is for PACS [...] documented as of this encounter Care Teams Experimental Plastics Fabricator Relationship Specialty Start Date End Date David Post MD 40 [place] [address] [email or web address] PCP - General Internal Medicine 04/02/17 Curry Serna MD 10 [facility] [address] [place] [address] Gastroenterology 07/20/19 documented as of this encounter Additional Source Comments The information contained in this document represents components of the legal health record. It is not the complete legal health record.[facility]
--- OUTSIDE RECORDS SUMMARY | 2025-04-03 14:01 | XMS_ITS | Encounter Summary ---
Author Organization [facility] Address [address] [facility] [address] [place] [address] Phone Care Team Providers Care Social Media Campaign Manager Name Role Phone David Post MD Primary Care Provider [phone] Curry Serna MD Unavailable [phone] Encounter Details Date Type Department Care Team (Late st Contact Info) Description 03/30/2023 Procedure Pass Non-Invasive Cardiology [address] [place] [address] Social History Tobacco Use Types Packs/Day Years [...] Description 08/18/2025 1:40 PM EDT Office Visit [facility] [address] [facility] 3rd Floor, [address] [place] [address] Arnold Petersen MD 22 [facility], [address] [place] [address] [email or web address] documented as of this encounter Visit Diagnoses Not on filedocumented in this encounter Additional Health Concerns Assessment Noted Time PHQ-2 Depression Total Score: 0 09/12/19 23 1:05 PM EDT documented as of this encounter Care Teams Social Media Campaign Manager Relationship Specialty Start Date End Date David Post MD [address] [place] [address] [email or web address] PCP - General Internal Medicine 04/02/17 Curry Serna MD [address] [place] [address] [address] [place] [address] Gastroenterology 07/20/19 documented as of this encounter Additional Source Comments The information contained in this document represents components of the legal health record. It is not the complete legal health record.[facility]
--- OUTSIDE RECORDS SUMMARY | 2025-04-03 14:02 | XMS_ITS | Clinical Summary ---
Author Organization [facility] Address [address] [place] [address] Phone Care Team Providers Care Osteopathy Doctor Name Role Phone David Post MD Primary Care Provider [phone] Curry Serna MD Unavailable [phone] Allergies No known active allergies Medications XARELTO 20 mg TabIndications:A trial fibrillation, unspecified type TAKE 1 TABLET BY MOUTH EVERY DAY WITH DINNER 90 tablet 3 08/15/2024 Active metoprolol succinate (TOPROL-XL) 50 MG 24 hr tabletIndication s:PAF (paroxysmal atrial fibrillation) TAKE 1 TABLET BY MOUTH EVERY DAY 90 tablet 3 09/23/2024 Active Active Problems Problem Noted Date Diagnosed Date Right carpal tunnel syndrome 08/05/2023 Malignant neoplasm of lower- inner quadrant of right female breast 04/18/2020 Pure hypercholesterolemia 11/02/2017 Assessment & Plan (08/15/2022 3:59 PM EDT): Lipids last year elevated. She is aware of this and will be discussing at her annual physical with PCP next month. Assessment & Plan (11/08/2018 11:02 AM EDT): LDL is slightly improved with an HDL that still in the 80s. I have not started any new medications. She will return in 6 months and will be followed by Abdi Simon. Paroxysmal atrial fibrillation 04/02/2017 Assessment & Plan (08/15/2022 3:57 PM EDT): No symptomatic recurrence. Continue metoprolol and Xarelto. Assessment & Plan (07/22/2021 11:05 AM EDT): She reports having occasional palpitations. She is tolerating metoprolol 50 mg daily and for the most part is rate controlled. She does occasionally feel a few skips in her heart but nothing sustained. She is also on Xarelto 20 mg daily for anticoagulation she will remain on her medications without change. She reports for the most part her blood pressures are also well controlled she occasionally has one BP in the 140 systolic. She is encouraged to follow a heart healthy diet and low sodium. She is also encouraged to exercise which does not usually take place too much during the winter and will increase during the summer with swimming. We will have her follow-up in 6 months Assessment & Plan (11/08/2018 11:01 AM EDT): In sinus today. On anticoagulation and rate control medications. Assessment & Plan (05/07/2018 10:56 AM EST): In sinus rhythm with both rate control and anticoagulation in place. Blood pressure was elevated today but she is in a fair amount of discomfort because of her back issue. I have asked her to continue to follow her blood pressure and to be sure that her home machine is accurate. Assessment & Plan (10/20/2017 12:41 PM EDT): As described she did have a brief episode several months ago. She's not interested in more aggressive therapy and her symptoms were only of palpitations. I've told her that should she have an episode that persists much longer than that that she should give us a call. For now I've made no changes. Assessment & Plan (04/02/2017 11:55 AM EST): Doing well. No change in medications. Blood pressure well controlled. Metabolic profile was normal in September and will be repeated today. PFO (patent foramen ovale) 04/02/2017 Resolved Problems Problem Noted Date Diagnosed Date Resolved Date Mixed hyperlipidemia 04/02/2017 019 Assessment & Plan (05/07/2018 10:55 AM EST): LDL is in the 140s. I think she is borderline for treatment but I have told her to watch her diet and I will repeat her numbers at her next visit and if they have increased I think it is time to start a statin. Assessment & Plan (10/20/2017 12:41 PM EDT): Labs are pending. Encounters Date Type Department Care Team Description 03/28/2025 Orders Only [facility] [employer] [facility] [address] [facility] [place], [facility] PURA [place] [address] Provider, MD Capri from Last 3 Months Immunizations Immunization Administration Dates Next Due COVID-19 (Pre-02/23) Pfizer Vaccine, mRNA, PF 08/11/2020,07/19/2020 Influenza High-Dose Quadriva lent Preservative Free IM 04/07/2023,04/21/2022 Influenza High-Dose Trivalen t Preservative Free IM 02/06/2020,02/24/2018,03/31/2017,01/07 Influenza, Unspecified Formulation 03/23/2019 Pneumococcal conjugate PCV13 10/23/2014 Pneumococcal polysaccharide PPSV23 05/15/2016, Td (adult) 5 Lf Tetanus Toxo id, PF, Adsorbed 11/05/2017,05/04/2007 Zoster live 12/23/2012 Family History Medical History Relation Comments Lymphoma Brother 2 Ulcers Father Atrial fibrillation Mother Stroke Mother Hypertension Sister Hypertension Son Relation Status Comments Brother 1 (Age 80) mesothelioma Brother 2 Alive joint replacemen t Father (Age 62) Mother Sister Alive htn Son Alive Social History Tobacco Use Types Packs/Day Years Used Date Smoking Tobacco: Former Cigarettes 1 32 1 960 - 05/04/1991 Smokeless Tobacco: Never Tobacco Cessation:Counseling Given: Not Answered Comments:quit in 1991 Alcohol Use Standard Drinks/Week [...] Orientation Straight 02/11/2019 4: 02 PM EDT Last Filed Vital Signs Vital Sign Reading Time Taken Comments Blood Pressure 146/86 08/18/2024 11:19 AM EDT Pulse 66 08/18/2024 11:19 AM EDT Temperature 36.3 C (97.3 F) 08/05/2023 11:39 AM EDT Respiratory Rate 16 08/05/2023 12:00 PM EDT Oxygen Saturation 98% 08/18/2024 11:19 AM EDT Inhaled Oxygen Concentration - - Weight 78.9 kg (174 lb) 08/18/2024 11:19 AM EDT Height 154.9 cm (5' 0.98 ) 08/18/2024 11:19 AM E DT Body Mass Index 32.89 08/18/2024 11:19 AM EDT Plan of Treatment Upcoming Encounters Date Type Department Care Team (Late st Contact Info) Description 08/18/2025 1:40 PM EDT Office Visit [facility] [address] [place] [address] 3rd Floor, [address] [place], [place] [phone] Arnold Petersen MD [address] [facility], [address] [place] [address] [phone] Health Maintenance Due Date Last Done Comments ZOSTER VACCINES (1 of 2) 02/17/2013 12/23/2012 RSV VACCINE (1 - 1-dose 75+ series) 08/24/2018 CREATININE LEVEL 01/16/2024 01/15/2023, , 04/14/2019, Additional history exists DEPRESSION SCREENING 09/16/2024 09/17/2023 INFLUENZA VACCINE (#1) 2024 3, 04/21/2022, 02/06/2020, Additional history exists COVID-19 VACCINE (3 - season) 2025 08/11/2020, 07/19/2020 Adult Td,Tdap Booster 11/06/2027 11/05/2017, 008 PNEUMOCOCCAL VACCINES (50+ years) Completed 05/15/2016, 10/23/2014, 05/04/2001 OSTEOPOROSIS SCREENING INITIAL (ONE-TIME) Completed 03/12/2023, 05/09/2020, 05/09/2020, Additional history exists HEPATITIS A VACCINES Aged Out No long er eligible based on patient's age to complete this topic HIB VACCINES Aged Out No longer eligi ble based on patient's age to complete this topic MENINGOCOCCAL VACCINES (ACWY) Aged Out No longer eligible based on patient's age to complete this topic MENINGOCOCCAL VACCINES (B) Aged Out N o longer eligible based on patient's age to complete this topic Medical Devices Not on file Procedures Procedure Name Priority Date/Time Associated Diagnosis Comments HM MAMMOGRAPHY Routine 03/24/2025 10:08 AM EST HM MAMMOGRAPHY Routine 03/24/2025 10:06 AM EST OUTSIDE BONE DENSITY SCREENING Routine 03/12/2023 COMPREHENSIVE METABOLIC PANEL (CMP) Routine 01/15/2023 9:52 AM EDT Benign essential hypertension from Last 3 Months or Most Recently Relevant to Health Maintenance Results * HM MAMMOGRAPHY FOR RESULT ENTRY ONLY (03/24/2025 10:08 AM EST) us Historical Provider HEALTH MAINTENANCE Final Result * HM MAMMOGRAPHY FOR RESULT ENTRY ONLY (03/24/2025 10:06 AM EST) us Historical Provider HEALTH MAINTENANCE Final Result * OUTSIDE BONE DENSITY SCREENING (03/12/2023) BONE DENSITY SCREENING - EXTERNAL osteopenia Historical Provider HEALTH MAINTENANCE Final Result * Comprehensive metabolic panel (01/15/2023 9:52 AM EDT) SODIUM 140 133 - 146 mmol/L [facility] POTASSIUM 4.5 3.3 - 5.1 mmol/L [facility] CHLORIDE 102 96 - 108 mmol/L [facility] CO2 26 21 - 35 mmol/L [facility] BUN 14 6 - 19 mg/dL [facility] CREATININE 0.60 0.5 - 1.5 mg/dL [facility] GLUCOSE 92 70 - 99 mg/dL [facility] ALBUMIN 4.3 3.9 - 4.8 g/dL [facility] TOTAL PROTEIN 7.1 6.5 - 8.0 g/dL [facility] CALCIUM 9.8 8.4 - 10.3 mg/dL [facility] ALKALINE PHOSPHATASE 63 39 - 117 U/L [facility] TOTAL BILIRUBIN 0.4 0.0 - 1.2 mg/dL [facility] AST 25 0 - 37 U/L [facility] ALT 19 0 - 40 U/L [facility] GLOBULIN 2.8 1 - 4.8 g/dL [facility] EGFR 91 >59 mL/min/1.7 3m2 [facility] Comment:Estimated glomerular filtration rate calculated using the CKD-EPI refit equation. ANION GAP 17 10 - 20 mmol/L [facility] Blood 01/15/2023 9:52 AM EDT 01/15/2023 9:58 AM EDT David Post MD LAB BLOOD BKR ORDERABLES Raquel l Result [facility] [address] [place] [address] from Last 3 Months or Most Recently Relevant to Health Maintenance Insurance MEDICARE HMO REPLACEMENT [employer] [place] [employer] [place] [employer] [place] [employer] RE[employer] [place] [employer] [place] [employer]AC[employer] [place] [employer] REPLACEMENT Care Teams Osteopathy Doctor Relationship Specialty Start Date End Date David Post MD [address] [place] [address] [email or web address] PCP - General Internal Medicine 04/02/17 Curry Serna MD [address] [place] [address] [place] [address] Gastroenterology 07/20/19 Additional Source Comments The information contained in this document represents components of the legal health record. It is not the complete legal health record.[facility]
--- OUTSIDE RECORDS SUMMARY | 2025-04-03 14:02 | XMS_ITS | Encounter Summary ---
Author Organization [facility] Address [address] [facility] [address] [place] [address] Phone Care Team Providers Care Maintenance Supervisor Name Role Phone Wiliam Blackwell MD Unavailable David Post MD Unavailable [phone] Wallace Barnard MD Unavailable Eladio Beltran MD Unavailable [phone] Kaleigh Beck NP Unavailable [phone] Lacho Forbes MD Unavailable [phone] Syed Goddard MD Unavailable [phone] David Post MD Primary Care Provider Curry Serna MD Unavailable Encounter Details Date Type Department Care Team (Latest Contact Info) Description 10/28/2017 Transcribe Orders [facility] [address] [place], [place] [phone] David Post MD [address] [place] [address] [phone] [email or web address] Palpitations (Primary Dx); Pure hypercholesterolemia Social History Tobacco Use Types Packs/Day Years Used Date Smoking Tobacco: Former Smokeless Tobacco: Never Comments:quit in 1991 Alcohol Use Standard Drinks/Week Comments Yes 0 (1 standard drink = 0.6 oz pur e alcohol) glass of wine every day Comments Unknown Sex and Gender Information Value Date Recorded Sex Assigned at Female 02/11/2019 4:02 PM EDT Legal Sex Female 10:10 PM EDT Gender Identity Female 02/11/2019 4:02 PM EDT Sexual Orientation Straight 02/11/2019 4: 02 PM EDT documented as of this encounter Plan of Treatment Upcoming Encounters Date Type Department Care Team (Late st Contact Info) Description 08/18/2025 1:40 PM EDT Office Visit [facility] [address] [facility] 3rd Floor, [address] [place] [address] Arnold Petersen MD 22 [facility], [address] [place] [address] documented as of this encounter Results * TSH (10/28/2017 9:30 AM EDT) TSH 1.83 0.27 - 4.20 uIU/mL [facility] Blood 10/28/2017 9:30 AM EDT 10/28/2017 9:34 AM EDT us David Post MD LAB BLOOD BKR ORDERABLES Raquel l Result [facility] [address] [place] [address] * (ABNORMAL) Comprehensive metabolic panel (10/28/2017 9:30 AM EDT) SODIUM 141 133 - 146 mmol/L [facility] POTASSIUM 4.7 3.3 - 5.1 mmol/L [facility] CHLORIDE 100 96 - 108 mmol/L [facility] CO2 30 21 - 35 mmol/L [facility] BUN 20(H) 6 - 19 mg/dL [facility] CREATININE 0.60 0.5 - 1.5 mg/dL [facility] GLUCOSE 109(H) 70 - 99 mg/dL [facility] ALBUMIN 4.2 3.9 - 4.8 g/dL [facility] TOTAL PROTEIN 7.4 6.5 - 8.0 g/dL [facility] CALCIUM 9.8 8.4 - 10.3 mg/dL [facility] ALKALINE PHOSPHATASE 45 39 - 117 U/L [facility] TOTAL BILIRUBIN 0.3 0.0 - 1.2 mg/dL [facility] AST 20 0 - 37 U/L [facility] ALT 16 0 - 40 U/L [facility] GLOBULIN 3.2 1 - 4.8 g/dL [facility] EGFR 90 >59 mL/min/1.7 3m2 [facility] Comment:If patient is black, multiply result by 1.159. Estimated glomerular filtration rate calculated using the CKD-EPI equation. ANION GAP 16 10 - 20 mmol/L [facility] Blood 10/28/2017 9:30 AM EDT 10/28/2017 9:34 AM EDT us David Post MD LAB BLOOD BKR ORDERABLES Raquel alvarado Result [address] [address] * (ABNORMAL) CBC (10/28/2017 9:30 AM EDT) WBC 5.63 3.40 - 11.20 K/uL [facility] RBC 4.27 3.80 - 4.80 M/uL [facility] HGB 13.9 12.0 - 15.0 g/dL [facility] HCT 42.5 36.0 - 46.0 % [facility] PLT 226 130 - 400 K/uL [facility] MCV 99.5(H) 79.0 - 98.0 fL [facility] MCH 32.6 27.0 - 34.8 pg [facility] MCHC 32.7 31.5 - 36.0 g/dL [facility] RDW 13.7 10.8 - 14.6 % [facility] MPV 10.1 9.4 - 12.4 fl [facility] NRBC 0.00 /100 WBCs [facility] ABSOLUTE NRBC 0.00 K/uL [facility] Blood 10/28/2017 9:30 AM EDT 10/28/2017 9:34 AM EDT us David J Sincere MD LAB BLOOD BKR ORDERABLES Raquel l Result Performing Organization Address City/[facility]/ZIP Co de Phone Number [address] [address] * (ABNORMAL) Lipid panel (10/28/2017 9:30 AM EDT) HDL 99 mg/dL [facility] Comment: Interpretation: Risk Level Females Decreased >55mg/dL Average 50-55 mg/dL Increased <50 mg/dL CHOLESTEROL 260(H) 0 - 240 mg/dL [facility] TRIGLYCERIDES 76 30 - 160 mg/dL [facility] LDL 146(H) 50 - 129 mg/dL [facility] Comment: LDL levels in terms of risk for coronary heart disease: <100 mg/dL: Optimal 100-129 mg/dL: Near or above optimal 130-159 mg/dL: Borderline high 160-189 mg/dL: High >190 mg/dL: Very High CARDIAC RISK RATIO 2.6(L) 3.3 - 4.4 C [facility] Blood 10/28/2017 9:30 AM EDT 10/28/2017 9:34 AM EDT us David Post MD LAB BLOOD BKR ORDERABLES Raquel l Result Performing Organization Address [facility] Co de Phone Number [address] [address] documented in this encounter Visit Diagnoses Diagnosis Palpitations- Primary Pure hypercholesterolemia documented in this encounter Additional Health Concerns Infection Onset Date Last Indicated Resolved Time CoV-Risk 02/21/2022 02/21/2022 03/04/2022 1:24 AM EDT documented as of this encounter Care Teams Maintenance Supervisor Relationship Specialty Start Date End Date David Post MD [address] [place] [address] [email or web address] PCP - General Internal Medicine 04/02/17 Wiliam Blackwell MD [address] [place] [address] [place] [address] [email or web address] Historical LMR Provider 02/16/17 07/19/19 David Post MD [address] [place] [address] [email or web address] Historical LMR Provider 02/16/17 07/19/19 Wallace Barnard MD [address] [address] [email or web address] Historical LMR Provider 02/16/17 0 Eladio Beltran MD [address] [address] [email or web address] Historical LMR Provider 02/16/17 07/19/19 Kaleigh Beck NP [address] [place] [address] 6 [place] [address] [email or web address] Historical LMR Provider 02/16/17 07/19/19 Lacho Forbes MD [address] [place] [address] Historical LMR Provider 02/16/17 Syed Goddard MD [address] [place] [address] [email or web address] Historical LMR Provider 02/16/17 07/19/19 Curry Serna MD [address] [place] [address] [place] [id number] Gastroenterology 07/20/19 documented as of this encounter Additional Source Comments The information contained in this document represents components of the legal health record. It is not the complete legal health record.[facility]
== END 2025-04-03 11:12 | disposition home or self-care (01) ==
LOC: HO.HGS 10:52
PROVIDERS: PCP Internal Medicine; Visit Provider Surgery
DX: C50.911 Malignant neoplasm of unspecified site of right female breast (principal)
CPT/HCPCS: 99213; G2211

== ENCOUNTER → 2025-04-03 10:51 | Outpatient (BNVA) | payer MEDICARE, SELFPAY | PROVIDERS: PCP Internal Medicine; Visit Provider Surgery | DX: Z08 Encounter for follow-up examination after completed treatment for malignant neoplasm (principal); Z85.3 Personal history of malignant neoplasm of breast; Z90.11 Acquired absence of right breast and nipple | CPT/HCPCS: 99212 ==